=== PATIENT | female | born 1975 | race African-American/Black ===

== ENCOUNTER 2016-09-06 12:49 | Emergency (ER) | payer OTHER ==
[~2016-09-06] VITALS: Ht 167.6 cm; Wt 175.0 kg
[~2016-09-06 12:49] MED LIST: CEPH-460 PO; CIPR-9 PO; HYDR-3533 PO; HYDR12.57 PO; METF500T PO
[2016-09-06 12:52] VITALS: BP 219/114; PULSE 114; RESP 20; TEMP 97.8; O2SAT 98
--- NOTE | 2016-09-06 15:25 | PD ---
HPI Chief Complaint: Pain: Acute or Chronic Time Seen by Provider: 15:25 Travel History International Travel<30 days: No Contact w/Intl Traveler<30days: No Traveled to known affect area: No History of Present Illness HPI 41-year-old female with PMH of DM, HTN presents to the ED for evaluation of "months long" history of right sided foot pain. She states that she works on her feet all day at [employer], this worsens the pain on the inner aspect of her right foot. Pain occasionally shoots up the leg. She denies acute injury to the area. She does note that she has a large callus in the area. Denies fevers, chills, numbness, tingling, limitations to range of motion of the extremity. She states that her mom gave her a few doses of gabapentin and this did improve the pain. She states she is otherwise been feeling well. She endorses complaints with her daily medications. She has never had a diabetic foot check. PFSH Past Medical History Asthma: No Blood Disorders: No Anxiety: No Depression: No Heart Rhythm Problems: No Cancer: No Cardiac Catheterization: No Cardiovascular Problems: Yes High Cholesterol: No Chemotherapy: No Chest Pain: No Congestive Heart Failure: No COPD: No Diabetes: Yes Patient Takes Glucophage: Yes Diminished Hearing: No Endocrine: Yes Genitourinary: No Hypertension: Yes Implanted Vascular Access Dvce: No Musculoskeletal: No Neurologic: Yes (dizziness) Psychiatric: No Reproductive: No Respiratory: No Myocardial Infarction: No Radiation Therapy: No Sleep Apnea: No Thyroid Disease: No ?: Not LMP: AUG 2016 Menopausal: Yes : 1 Para: 1 Past Surgical History Coronary Artery Bypass Graft: No Social History Alcohol Use: No Tobacco Use: No Substance Use: No Allergies-Medications (Allergen,Severity, Reaction): Coded Allergies: No Known Allergies (Verified , 09/06/16) Reported Meds & Prescriptions Reported Meds & Active Scripts Active Gabapentin 300 Mg Cap 300 Mg PO BID Lortab (Hydrocodone-Acetaminophen) 5-325 Mg Tab 1 Tab PO Q4H PRN Keflex (Cephalexin) 500 Mg Cap 500 Mg PO Q6H Cipro (Ciprofloxacin HCl) 500 Mg Tab 500 Mg PO BID Reported Hydrochlorothiazide 12.5 Mg Cap 12.5 Mg PO BID Metformin (Metformin HCl) 500 Mg Tab 500 Mg PO BIDPC With meals Review of Systems Except as stated in HPI: all other systems reviewed are Neg Physical Exam Narrative GENERAL: Well-nourished, well-developed, obese black female in no acute distress. SKIN: Warm and dry. There is a 3 cm x 4 cm tender callus on the medial aspect of the right foot. No warmth, erythema, edema, lymphatic streaking. HEAD: Normocephalic. EYES: No scleral icterus. No injection or drainage. NECK: Supple, trachea midline. No JVD or lymphadenopathy. CARDIOVASCULAR: Regular rate and rhythm without murmurs, gallops, or rubs. RESPIRATORY: Breath sounds clear and equal bilaterally. No accessory muscle use. GASTROINTESTINAL: Abdomen soft, non-tender, nondistended. MUSCULOSKELETAL: No cyanosis, or edema. Focused right lower extremity exam: 2+ radial pulse. Patient is able to flex and extend the ankle and toes. Cap refill less than 2 seconds. Sensation intact to light touch distally. BACK: Nontender without obvious deformity. No CVA tenderness. Data Data Last Documented VS Vital Signs Date Time Temp Pulse Resp B/P Pulse Ox O2 Delivery O2 Flow Rate FiO2 09/06/16 12:52 97.8 114 20 219/114 98 Room Air MDM Medical Decision Making Medical Screen Exam Complete: Yes Emergency Medical Condition: Yes Differential Diagnosis Diabetic neuropathy versus callus versus diabetic foot wound versus other Narrative Course 41-year-old female with PMH of DM, HTN presents to the ED for evaluation of "months long" history of right sided foot pain. She states that she works on her feet all day at [employer], this worsens the pain on the inner aspect of her right foot. Pain occasionally shoots up the leg. She denies acute injury to the area. She does note that she has a large callus in the area. She states that her mom gave her a few doses of gabapentin and this did improve the pain. Vitals reviewed. Physical exam reveals a large, tender callus on the inner aspect of the right foot. No warmth, erythema, discharge, edema or lymphatic streaking. There is a 2+ DP pulse. Patient is able to flex and extend the ankle and toes. The patient asked me to remove the callus. I declined, explained the increased risk involved with diabetic foot care. Patient states that she has never had a diabetic foot check. I instructed her to follow up with the bead machine operator and her primary care provider for further evaluation of the pain. I cautioned her against treatment of the callus at home. Provided her a prescription for Neurontin, 300 mg twice a day. Again I stressed the importance of follow-up with the bead machine operator. The patient indicated understanding of instructions. She is amenable to plan of care. She is stable and discharged home. Diagnosis Primary Impression: Callus of foot Additional Impression: Diabetic neuropathy Qualified Code: E11.42 - Diabetic polyneuropathy associated with type 2 diabetes mellitus Referrals: [facility]ator Primary Care Physician Patient Instructions: Diabetes and Your Skin (ED), Diabetic Foot Ulcers (ED), General Instructions Additional Instructions: Rest, hydrate. Take gabapentin as prescribed. Follow-up the bead machine operator this week as discussed. Follow up with her primary care provider for diabetic foot check. Return to the ED for any urgent or emergent medical condition. Med/Other Pt SpecificInfo: Prescription(s) given Scripts Gabapentin 300 Mg [id number] Mg PO BID #60 CAP Ref 0 Prov:Ashley Beatty MD 09/06/16 Disposition: 01 DISCHARGE HOME Condition: Stable Mony King Sep 06, 2016 15:25
[2016-09-06] MEDS ORDERED: GABA300C5 PO (15:39)
== END 2016-09-06 16:08 | disposition home or self-care (01) ==
LOC: NETRI 12:49
DX: L84 Corns and callosities (principal); E11.42 Type 2 diabetes mellitus with diabetic polyneuropathy; I10 Essential (primary) hypertension; Z79.84 Long term (current) use of oral hypoglycemic drugs; Z86.79 Personal history of other diseases of the circulatory system; Z86.69 Personal history of other diseases of the nervous system and sense organs
CPT/HCPCS: 99283

== ENCOUNTER 2016-09-25 07:48 | Emergency (ER) | payer OTHER ==
[~2016-09-25] VITALS: Ht 167.6 cm; Wt 175.0 kg
[~2016-09-25 07:48] MED LIST changes: +GABA300C5 PO
[2016-09-25 07:50] VITALS: BP 210/116; PULSE 86; RESP 20; TEMP 98.1; O2SAT 98
--- NOTE | 2016-09-25 08:57 | PD ---
HPI Chief Complaint: Skin Problem Time Seen by Provider: 08:54 Travel History International Travel<30 days: No Contact w/Intl Traveler<30days: No Traveled to known affect area: No History of Present Illness HPI Patient is a 41-year-old female presenting to the emergency department for evaluation of a right upper thigh abscess. Patient states it started 2 days ago. She reports it spontaneously draining. Her pain is 8/10. She denies any fever, chills, nausea, vomiting. PFSH Past Medical History Asthma: No Blood Disorders: No Anxiety: No Depression: No Heart Rhythm Problems: No Cancer: No Cardiac Catheterization: No Cardiovascular Problems: Yes High Cholesterol: No Chemotherapy: No Chest Pain: No Congestive Heart Failure: No COPD: No Diabetes: Yes Diminished Hearing: No Endocrine: Yes Genitourinary: No Hypertension: Yes Implanted Vascular Access Dvce: No Musculoskeletal: No Neurologic: Yes (dizziness) Psychiatric: No Reproductive: No Respiratory: No Myocardial Infarction: No Radiation Therapy: No Sleep Apnea: No Thyroid Disease: No ?: Not LMP: 2 weeks ago Menopausal: Yes : 1 Para: 1 Past Surgical History Coronary Artery Bypass Graft: No Social History Alcohol Use: No Tobacco Use: No Substance Use: No Allergies-Medications (Allergen,Severity, Reaction): Coded Allergies: No Known Allergies (Verified , 09/25/16) Reported Meds & Prescriptions Reported Meds & Active Scripts Active Gabapentin 300 Mg Cap 300 Mg PO BID Lortab (Hydrocodone-Acetaminophen) 5-325 Mg Tab 1 Tab PO Q4H PRN Keflex (Cephalexin) 500 Mg Cap 500 Mg PO Q6H Cipro (Ciprofloxacin HCl) 500 Mg Tab 500 Mg PO BID Reported Hydrochlorothiazide 12.5 Mg Cap 12.5 Mg PO BID Metformin (Metformin HCl) 500 Mg Tab 500 Mg PO BIDPC With meals Review of Systems Except as stated in HPI: all other systems reviewed are Neg Musculoskeletal: Positive: Myalgias Skin: Positive Lesions Physical Exam Narrative GENERAL: Morbidly obese, well-developed patient. SKIN: Warm and dry. 2 inch area of swelling and fluctuance noted to the right upper thigh. Significant weight tender to palpation, clear drainage noted. HEAD: Normocephalic. EYES: No scleral icterus. No injection or drainage. NECK: Supple, trachea midline. No JVD or lymphadenopathy. CARDIOVASCULAR: Regular rate and rhythm without murmurs, gallops, or rubs. RESPIRATORY: Breath sounds equal bilaterally. No accessory muscle use. GASTROINTESTINAL: Abdomen soft, non-tender, nondistended. MUSCULOSKELETAL: No cyanosis, or edema. BACK: Nontender without obvious deformity. No CVA tenderness. Data Data Last Documented VS Vital Signs Date Time Temp Pulse Resp B/P Pulse Ox O2 Delivery O2 Flow Rate FiO2 09/25/16 09:35 82 16 169/85 99 Room Air 09/25/16 07:50 98.1 Orders Wound Culture And Gram Stain (09/25/16 08:51) Lidocai-Epi 1%-1:100,000 Inj (Xylocaine- (09/25/16 09:00) MDM Medical Decision Making Medical Screen Exam Complete: Yes Emergency Medical Condition: Yes Interpretation(s) Vital Signs Date Time Temp Pulse Resp B/P Pulse Ox O2 Delivery O2 Flow Rate FiO2 09/25/16 07:50 98.1 86 20 210/116 98 Room Air Differential Diagnosis Cellulitis versus abscess versus folliculitis versus sebaceous cyst versus other Narrative Course Patient is a 41-year-old female presenting to emergency evaluation of an abscess to her right upper thigh. It is fluctuant, significantly tender to palpation. I&D is indicated, please see procedure report. Patient tolerated procedure well. Patient's vital signs showed an markedly elevated blood pressure upon arrival, blood pressure was reassessed at 169/85. Patient stated that she has not taken her blood pressure medication this morning. Patient was advised to maintain adherence to medication schedule to avoid rebound hypertension. Patient was advised to come back to emergency department 48 hours to have packing removed. She was encouraged to return to the emergency department sooner for any new or worsening symptoms. Patient verbalized understanding of these instructions. Patient stable for discharge. Procedures Procedure Narrative After the risks and benefits were discussed the following procedure was performed: INCISION AND DRAINAGE OF ABSCESS: The area was prepped and was sterilely draped. A subcutaneous wheal of 1 % Xylocaine with a total number 2 mL was used to anesthetize the area. The area was properly anesthetized. A number 11 scalpel was used to make a 1 -cm incision across the area of the abscess. Cultures were obtained. The abscess was drained an irrigated with normal saline. Quarter inch iodoform packing was placed in the wound. Sterile dressing applied. Patient advised to have packing removed in two days. Diagnosis Primary Impression: Abscess Referrals: Primary Care Physician Patient Instructions: Abscess (GEN), Abscess Follow-up (ED), Abscess Incision and Drainage (ED), General Instructions Additional Instructions: Return to emergency department in 48 hours to have packing removed Return to the emergency department sooner for any new or worsening symptoms Leave packing in place, you may change bandage as needed for soiling Complete full course of antibiotics as prescribed Med/Other Pt SpecificInfo: Prescription(s) given Scripts Clindamycin 150 Mg [id number] Mg PO Q8HR 10 Days Ref 0 Prov:Dona Schwartz 09/25/16 Tramadol 50 Mg Tab50 Mg PO Q4H PRN (PAIN) #10 TAB Ref 0 Prov:Densy Bruner MD 09/25/16 Disposition: 01 DISCHARGE HOME Condition: Stable Dona Schwartz Sep 25, 2016 08:57
[2016-09-25] MEDS ORDERED: LIDOCAINE 1%/EPINEPHrine 1:100,000 SOLN 20 ML VIAL INFIL ONE (09:00)
[2016-09-25 09:35] VITALS: BP 169/85; PULSE 82; RESP 16; O2SAT 99
[2016-09-25] MEDS ORDERED: TRAM50TA PO (09:49)
[2016-09-25] MEDS ORDERED: CLIN1CAP5 PO (09:50)
== END 2016-09-25 10:05 | disposition home or self-care (01) ==
LOC: NEPB 07:48
DX: L02.415 Cutaneous abscess of right lower limb (principal); B96.89 Other specified bacterial agents as the cause of diseases classified elsewhere
CPT/HCPCS: 10061; 87070; 87185

== ENCOUNTER 2017-11-11 13:53 | Inpatient (IN) | payer OTHER ==
[~2017-11-11 13:53] MED LIST changes: -CEPH-460 PO; +CLIN150C14 PO; -HYDR-3533 PO; +TRAM50TA PO
[2017-11-11 14:08] VITALS: BP 227/111; PULSE 88; RESP 14; TEMP 98.5; O2SAT 99
[2017-11-11] MEDS ORDERED: SODIUM CHLORIDE 0.9% FLUSH 10 ML FLUSH IVF PRN (17:30)
--- NOTE | 2017-11-11 17:30 | PD ---
HPI Chief Complaint: Edema Time Seen by Provider: 17:20 Travel History International Travel<30 days: No Contact w/Intl Traveler<30days: No Traveled to known affect area: No History of Present Illness HPI 42-year-old female with history of hypertension, diabetes, has not been on her medications for years, has not seen her PCP in years, here for evaluation of bilateral lower extremity edema and a large callus on her right foot. Patient reports that she has had worsening edema over the last 2 days. She denies chest pain or dyspnea. No history of DVT or PE. PFSH Past Medical History Asthma: No Blood Disorders: No Anxiety: No Depression: No Heart Rhythm Problems: No Cancer: No Cardiac Catheterization: No Cardiovascular Problems: Yes High Cholesterol: No Chemotherapy: No Chest Pain: No Congestive Heart Failure: No COPD: No Diabetes: Yes Diminished Hearing: No Endocrine: Yes Genitourinary: No Hypertension: Yes Implanted Vascular Access Dvce: No Musculoskeletal: No Neurologic: Yes (dizziness) Psychiatric: No Reproductive: No Respiratory: No Myocardial Infarction: No Radiation Therapy: No Sleep Apnea: No Thyroid Disease: No Menopausal: Yes : 1 Para: 1 Past Surgical History Coronary Artery Bypass Graft: No Social History Alcohol Use: No Tobacco Use: No Substance Use: No Allergies-Medications (Allergen,Severity, Reaction): Coded Allergies: No Known Allergies (Verified , 09/30/16) Reported Meds & Prescriptions Reported Meds & Active Scripts Active Gabapentin 300 Mg Cap 300 Mg PO BID Hydrochlorothiazide 25 Mg Tab 25 Mg PO DAILY Metformin (Metformin HCl) 500 Mg Tab 500 Mg PO BIDPC Gabapentin 300 Mg Cap 300 Mg PO BID Reported Hydrochlorothiazide 12.5 Mg Cap 12.5 Mg PO BID Metformin (Metformin HCl) 500 Mg Tab 500 Mg PO BIDPC With meals Review of Systems Except as stated in HPI: all other systems reviewed are Neg Physical Exam Narrative GENERAL: Well-developed, well-nourished, overweight, comfortable, no apparent distress. SKIN: Focused skin assessment warm/dry. HEAD: Atraumatic. Normocephalic. EYES: Pupils equal and round. No scleral icterus. No injection or drainage. ENT: No nasal bleeding or discharge. Mucous membranes pink and moist. NECK: Trachea midline. No JVD. CARDIOVASCULAR: Regular rate and rhythm. No murmur appreciated. RESPIRATORY: No accessory muscle use. Clear to auscultation. Breath sounds equal bilaterally. GASTROINTESTINAL: Abdomen soft, non-tender, nondistended. MUSCULOSKELETAL: No obvious deformities. No clubbing. No cyanosis. Mild bilateral lower extremity edema. All compartments in bilateral lower extremity' s are supple. Large firm callus on the plantar aspect of the right foot as well as one on the left foot. NEUROLOGICAL: Awake and alert. No obvious cranial nerve deficits. Motor grossly within normal limits. Normal speech. PSYCHIATRIC: Appropriate mood and affect; insight and judgment normal. Data Data Last Documented VS Vital Signs Date Time Temp Pulse Resp B/P (MAP) Pulse Ox O2 Delivery O2 Flow Rate FiO2 11/11/17 20:57 265/128 (173) 11/11/17 20:04 80 16 100 Room Air 11/11/17 14:08 98.5 Orders Orders Complete Blood Count With Diff (11/11/17 17:23) Comprehensive Metabolic Panel (11/11/17 17:23) B-Type Natriuretic Peptide (11/11/17 17:23) Act Partial Throm Time (Ptt) (11/11/17:) Prothrombin Time / Inr (Pt) (11/11/17 17:23) Ckmb (Isoenzyme) Profile (11/11/17 17:23) Troponin I (11/11/17 17:23) Iv Access Insert/Monitor (11/11/17 17:) Electrocardiogram (11/11/17 17:23) Ecg Monitoring (11/11/17 17:23) Oximetry (11/11/17 17:23) Chest, Single Ap (11/11/17 17:23) Sodium Chloride 0.9% Flush (Ns Flush) (11/11/17 17:30) Us Leg Venous Doppler Bilat (11/11/17 ) Beta Hcg (Quant/Titer) (11/11/17 17:23) Hydralazine Inj (Apresoline Inj) (11/11/17 18:00) Hydralazine Inj (Apresoline Inj) (11/11/17 20:15) Clonidine (Catapres) (11/11/17 20:15) Nicardipine Inj (Cardene Inj) (11/11/17 21:15) Labs Laboratory Tests Test 11/11/17 18:33 White Blood Count 7.7 TH/MM3 Red Blood Count 4.39 MIL/MM3 Hemoglobin 11.7 GM/DL Hematocrit 36.2 % Mean Corpuscular Volume 82.5 FL Mean Corpuscular Hemoglobin 26.8 PG Mean Corpuscular Hemoglobin Concent 32.5 % Red Cell Distribution Width 15.3 % Platelet Count 342 TH/MM3 Mean Platelet Volume 9.1 FL Neutrophils (%) (Auto) 60.5 % Lymphocytes (%) (Auto) 31.6 % Monocytes (%) (Auto) 6.2 % Eosinophils (%) (Auto) 1.0 % Basophils (%) (Auto) 0.7 % Neutrophils # (Auto) 4.7 TH/MM3 Lymphocytes # (Auto) 2.4 TH/MM3 Monocytes # (Auto) 0.5 TH/MM3 Eosinophils # (Auto) 0.1 TH/MM3 Basophils # (Auto) 0.1 TH/MM3 CBC Comment DIFF FINAL Differential Comment Prothrombin Time 10.3 SEC Prothromb Time International Ratio 1.0 RATIO Activated Partial Thromboplast Time 23.7 SEC Blood Urea Nitrogen 5 MG/DL Creatinine 0.75 MG/DL Random Glucose 219 MG/DL Total Protein 7.9 GM/DL Albumin 3.1 GM/DL Calcium Level 8.7 MG/DL Alkaline Phosphatase 129 U/L Aspartate Amino Transf (AST/SGOT) 17 U/L Alanine Aminotransferase (ALT/SGPT) 20 U/L Total Bilirubin 0.8 MG/DL Sodium Level 138 MEQ/L Potassium Level 3.9 MEQ/L Chloride Level 104 MEQ/L Carbon Dioxide Level 30.3 MEQ/L Anion Gap 4 MEQ/L Estimat Glomerular Filtration Rate 104 ML/MIN Total Creatine Kinase 60 U/L Troponin I LESS THAN 0.02 NG/ML Human Chorionic Gonadotropin, Quant LESS THAN 1 MIU/ML MDM Medical Decision Making Medical Screen Exam Complete: Yes Emergency Medical Condition: Yes Medical Record Reviewed: Yes Interpretation(s) EKG: Sinus, rate 74, leftward axis, normal intervals, LVH, no acute ischemic abnormality. Differential Diagnosis Venous insufficiency, fluid overload, DVT, callus of the foot, medication noncompliance, hypertensive crisis Narrative Course Initial vital signs show heart rate 88, blood pressure 227/111, pulse ox 99% on room air, oral temperature 98.5F. CBC is unremarkable. CMP is remarkable for random glucose 219, otherwise unremarkable. Cardiac enzymes are negative. BNP Beta-hCG is negative. Chest x-ray: Cardiomegaly. Mild pulmonary vascular congestion. Bilateral lower extremity venous duplex: Negative exam with no evidence of DVT. Patient was initially given 10 mg of IV hydralazine and her blood pressure actually went up. She was then given a dose of 0.2 mg of clonidine as well as 20 mg of hydralazine and her blood pressure continued to rise. The repeat blood pressure is 265/128. Because of this uncontrolled blood pressure, the patient will be admitted for further treatment and evaluation. Case discussed with hospitalist Dr. Ndiaye who will admit the patient to her service. Patient will be started on a Cardene drip. Diagnosis Primary Impression: Poorly controlled blood pressure Additional Impressions: Callus of foot Bilateral lower extremity edema Elevated blood pressure reading Hyperglycemia Admitting Information Admitting Physician Requests: Admit Referrals: Ashley Banuelos DPM 3 days fountain helper [facility] 3 days Scripts Gabapentin (Gabapentin) 300 Mg Cap 300 MG PO BID, #60 CAP 0 Refills Prov: Adam Baum MD 11/11/17 Hydrochlorothiazide (Hydrochlorothiazide) 25 Mg Tab 25 MG PO DAILY, #30 TAB 0 Refills Prov: Adam Baum MD 11/11/17 Metformin (Metformin) 500 Mg Tab 500 MG PO BIDPC for Blood Sugar Management, #60 TAB 0 Refills Prov: Adam Baum MD 11/11/17 Disposition: 01 DISCHARGE HOME Condition: Stable Adam Baum MD Nov 11, 2017 17:30
[2017-11-11] MEDS ORDERED: hydrALAZINE HCL 20 MG/ML VIAL IV PUSH ONE ×2 (18:00→20:15)
--- NOTE | 2017-11-11 18:07 | RADRPT ---
EXAM DATE/TIME: 11/11/2017 17:31 [facility] COMPARISON: No previous studies available for comparison. INDICATIONS : Short of breath with feet swelling. MEDICAL HISTORY : None. SURGICAL HISTORY : None. ENCOUNTER: Initial ACUITY: 1 day PAIN SCORE: 0/10 LOCATION: Bilateral chest FINDINGS: The heart is enlarged. Mild pulmonary vascular congestion is noted bilaterally. No focal infiltrate i s noted. CONCLUSION: Cardiomegaly. Mild pulmonary vascular congestion. Eric Paniagua MD on November 11, 2017 at 18:03 Board Certified Radiologist. This report was verified electronically.
--- NOTE | 2017-11-11 18:26 | RADRPT ---
EXAM DATE/TIME: 11/11/2017 17:48 [facility] COMPARISON: No previous studies available for comparison. INDICATIONS : Bilateral leg swelling. MEDICAL HISTORY : Hypertension. Glasses. Dizziness. Diabetes. SURGICAL HISTORY : section. ENCOUNTER: Initial ACUITY: 3 days PAIN SCORE: 3/10 LOCATION: Bilateral legs. TECHNIQUE: Venous ultrasound of the left and right leg was performed from the inguinal ligament to the proximal calf. Real-time, color Doppler and spectral tracing, compression and augmentation techniques were us ed. FINDINGS: RIGHT LEG: There is normal compressibility of the deep venous system from the inguinal region to the proximal ca lf. No echogenic clot is seen in the lumen of the common femoral, femoral, popliteal, and posterior tibial veins. There is a normal response of the venous system to proximal and distal augmentation an d respiration. LEFT LEG: There is normal compressibility of the deep venous system from the inguinal region to the proximal ca lf. No echogenic clot is seen in the lumen of the common femoral, femoral, popliteal, and posterior tibial veins. There is a normal response of the venous system to proximal and distal augmentation an d respiration. CONCLUSION: Negative exam with no evidence of deep venous thrombosis. Tim Bueno MD on November 11, 2017 at 18:22 Board Certified Radiologist. This report was verified electronically.
[2017-11-11 18:43] LABS: AUTOMATED NEUTROPHIL # 4.7 TH/MM3 (1.8-7.7); BASOPHIL # 0.1 TH/MM3 (0-0.2); BASOPHIL % 0.7 % (0.0-2.0); EOSINOPHIL # 0.1 TH/MM3 (0-0.4); HEMATOCRIT 36.2 % (35.0-46.0); HEMOGLOBIN 11.7 GM/DL (11.6-15.3); LYMPH % 31.6 % (9.0-44.0); LYMPHOCYTE # 2.4 TH/MM3 (1.0-4.8); MEAN CELL VOLUME 82.5 FL (80.0-100.0); MEAN CORPUSCULAR HEMOGLOBIN 26.8 PG (27.0-34.0); MEAN CORPUSCULAR HGB CONC 32.5 % (32.0-36.0); MEAN PLATELET VOLUME 9.1 FL (7.0-11.0); MONO % 6.2 % (0.0-8.0); MONOCYTE # 0.5 TH/MM3 (0-0.9); NEUT % 60.5 % (16.0-70.0); PLATELET COUNT 342 TH/MM3 (150-450); RED BLOOD COUNT 4.39 MIL/MM3 (4.00-5.30); RED CELL DISTRIBUTION WIDTH 15.3 % (11.6-17.2); WHITE BLOOD COUNT 7.7 TH/MM3 (4.0-11.0)
[2017-11-11 18:55] LABS: PROTHROMBIN TIME - PATIENT 10.3 SEC (9.8-11.6)
[2017-11-11 19:01] LABS: ALBUMIN 3.1 GM/DL (3.4-5.0); AST (GOT) 17 U/L (15-37); BICARBONATE 30.3 MEQ/L (21.0-32.0); BLOOD UREA NITROGEN 5 MG/DL (7-18); CALCIUM 8.7 MG/DL (8.5-10.1); CREATININE 0.75 MG/DL (0.50-1.00); GLOMERULAR FILTRATION RATE 104 ML/MIN (>89); GLUCOSE,RANDOM 219 MG/DL (74-106)
[2017-11-11 19:03] LABS: ALT (GPT) 20 U/L (10-53)
[2017-11-11 19:37] LABS: ALKALINE PHOSPHATASE 129 U/L (45-117); CHLORIDE 104 MEQ/L (98-107); SODIUM (NA) 138 MEQ/L (136-145); TOTAL BILIRUBIN ADULT 0.8 MG/DL (0.2-1.0); TOTAL PROTEIN 7.9 GM/DL (6.4-8.2); TROPONIN I LESS THAN 0.02 NG/ML (0.02-0.05)
[2017-11-11 20:04] VITALS: BP 255/117; PULSE 80; RESP 16; O2SAT 100
[2017-11-11] MEDS ORDERED: HYDR25TA5 PO (20:06)
[2017-11-11] MEDS ORDERED: METF500T PO (20:06)
[2017-11-11] MEDS ORDERED: GABA300C5 PO (20:06)
[2017-11-11] MEDS ORDERED: cloNIDine HCL 0.2 MG TAB PO ONE (20:15)
[2017-11-11 20:57] VITALS: BP 265/128
[2017-11-11] MEDS ORDERED: BISACODYL 10 MG SUPP RECTAL PRN (21:30)
[2017-11-11] MEDS ORDERED: NALOXONE HCL 0.4 MG/ML AMP IV PUSH PRN (21:30)
[2017-11-11] MEDS ORDERED: LACTULOSE SYRUP 20 GM/30 ML CUP PO PRN (21:30)
[2017-11-11] MEDS ORDERED: ONDANSETRON HCL 4 MG/2 ML VIAL IVP PRN (21:30)
[2017-11-11] MEDS ORDERED: SENNOSIDES 8.6 MG TAB PO PRN (21:30)
[2017-11-11] MEDS ORDERED: MAGNESIUM HYDROXIDE SUSP 30 ML CUP PO PRN (21:30)
[2017-11-11] MEDS ORDERED: SODIUM CHLORIDE 0.9% FLUSH 10 ML FLUSH IV FLUSH PRN (21:30)
[2017-11-11] MEDS ORDERED: GLUCAGON 1 MG/ML VIAL OTHER PRN (21:45)
[2017-11-11] MEDS ORDERED: DEXTROSE 50% IN WATER 50 ML VIAL(D50) IV PUSH PRN (21:45)
[2017-11-11 23:00] VITALS: BP 182/86; PULSE 79; RESP 16
[2017-11-11] MEDS: niCARdipine INJ 25 MG in SODIUM CHLOR 0.9% 250 ML INJ 240 ML IV PRN (23:15)
[2017-11-11] MEDS: HEPARIN SODIUM - SQ 10,000 UNITS/ML VIAL SQ SCH (23:15)
[2017-11-11] MEDS: ACETAMINOPHEN 325 MG TAB PO PRN (23:16)
[2017-11-11 23:30] VITALS: BP 208/93; PULSE 72; RESP 16; O2SAT 98
--- NOTE | 2017-11-11 23:42 | HHI.HP ---
[facility] Unknown Admission Diagnosis Uncontrolled blood pressure, bilateral pedal edema, hyperglycemia Diagnoses: Travel History International Travel<30 Days: No Contact w/Intl Traveler <30 Da: No Traveled to Known Affected Are: No History of Present Illness 42-year-old female with a past medical history significant for hypertension and type 2 diabetes mellitus presents to the emergency department for evaluation of bilateral swollen feet and a callus on her right foot. The patient reports she has been noncompliant with her medication regimen for approximately the past 2 months. She reports she has medications however she is just not been taking them. She endorses a headache that began in the emergency department. She denies any fever/chills. No difficulty with ambulation. No weakness. Denies any chest pain or shortness of breath. No abdominal pain. No nausea/vomiting/ diarrhea. Review of Systems Except as stated in HPI: all other systems reviewed are Neg Past Family Social History Past Medical History Hypertension Type 2 diabetes mellitus Past Surgical History Reported Meds & Active Scripts Active Gabapentin 300 Mg Cap 300 Mg PO BID Hydrochlorothiazide 25 Mg Tab 25 Mg PO DAILY Metformin (Metformin HCl) 500 Mg Tab 500 Mg PO BIDPC Gabapentin 300 Mg Cap 300 Mg PO BID Reported Hydrochlorothiazide 12.5 Mg Cap 12.5 Mg PO BID Metformin (Metformin HCl) 500 Mg Tab 500 Mg PO BIDPC With meals Allergies: Coded Allergies: No Known Allergies (Verified Allergy, Unknown, 11/11/17) Family History Mother with diabetes mellitus Social History Negative for alcohol, tobacco and illicit drugs Physical Exam Vital Signs Vital Signs Date Time Temp Pulse Resp B/P (MAP) Pulse Ox O2 Delivery O2 Flow Rate FiO2 11/11/17 23:15 79 182/86 11/11/17 23:00 79 16 182/86 (118) 11/11/17 20:57 265/128 (173) 11/11/17 20:04 80 16 255/117 (163) 100 Room Air 11/11/17 14:08 98.5 88 14 227/111 (149) 99 Physical Exam GENERAL: female lying in bed SKIN: No rashes, ecchymoses or lesions. Cool and dry. One area of callus along the medial aspect of the right plantar surface. Dry skin along the plantar surface of the right foot. No signs of infection. No surrounding erythema or edema. HEAD: Atraumatic. Normocephalic. No temporal or scalp tenderness. EYES: Pupils equal round and reactive. Extraocular motions intact. No scleral icterus. No injection or drainage. ENT: Nose without bleeding, purulent drainage or septal hematoma. Throat without erythema, tonsillar hypertrophy or exudate. Uvula midline. Airway patent. NECK: Trachea midline. No JVD or lymphadenopathy. Supple, nontender, no meningeal signs. CARDIOVASCULAR: Regular rate and rhythm without murmurs, gallops, or rubs. RESPIRATORY: Clear to auscultation. Breath sounds equal bilaterally. No wheezes , rales, or rhonchi. GASTROINTESTINAL: Abdomen soft, non-tender, nondistended. No hepato-splenomegaly , or palpable masses. No guarding. MUSCULOSKELETAL: Extremities without clubbing, cyanosis, or edema. No joint tenderness, effusion, or edema noted. No calf tenderness. NEUROLOGICAL: Awake and alert. Cranial nerves II through XII intact. Motor and sensory grossly within normal limits. Normal speech. Laboratory Laboratory Tests Test 11/11/17 18:33 White Blood Count 7.7 Red Blood Count 4.39 Hemoglobin 11.7 Hematocrit 36.2 Mean Corpuscular Volume 82.5 Mean Corpuscular Hemoglobin 26.8 Mean Corpuscular Hemoglobin Concent 32.5 Red Cell Distribution Width 15.3 Platelet Count 342 Mean Platelet Volume 9.1 Neutrophils (%) (Auto) 60.5 Lymphocytes (%) (Auto) 31.6 Monocytes (%) (Auto) 6.2 Eosinophils (%) (Auto) 1.0 Basophils (%) (Auto) 0.7 Neutrophils # (Auto) 4.7 Lymphocytes # (Auto) 2.4 Monocytes # (Auto) 0.5 Eosinophils # (Auto) 0.1 Basophils # (Auto) 0.1 CBC Comment DIFF FINAL Differential Comment Prothrombin Time 10.3 Prothromb Time International Ratio 1.0 Activated Partial Thromboplast Time 23.7 Blood Urea Nitrogen 5 Creatinine 0.75 Random Glucose 219 Total Protein 7.9 Albumin 3.1 Calcium Level 8.7 Alkaline Phosphatase 129 Aspartate Amino Transf (AST/SGOT) 17 Alanine Aminotransferase (ALT/SGPT) 20 Total Bilirubin 0.8 Sodium Level 138 Potassium Level 3.9 Chloride Level 104 Carbon Dioxide Level 30.3 Anion Gap 4 Estimat Glomerular Filtration Rate 104 Total Creatine Kinase 60 Troponin I LESS THAN 0.02 B-Type Natriuretic Peptide 39 Human Chorionic Gonadotropin, Quant LESS THAN 1 Result Diagram: 11/11/17183211/11/171832 Robb VTE Risk Assessment Caprini VTE Risk Assessment: No/Low Risk (score <= 1) Caprini Risk Assessment Model Point Value = 1 Point Value = 2 Point Value = 3 Point Value = 5 Age 41-60 Minor surgery BMI > 25 kg/m2 Swollen legs Varicose veins or History of unexplained or recurrent spontaneous Oral contraceptives or hormone replacement Sepsis (< 1 month) Serious lung disease, including pneumonia (< 1 month) Abnormal pulmonary function Acute myocardial infarction Congestive heart failure (< 1 month) History of inflammatory bowel disease Medical patient at bed rest Age 61-74 Arthroscopic surgery Major open surgery (> 45 min) Laparoscopic surgery (> 45 min) Malignancy Confined to bed (> 72 hours) Immobilizing plaster cast Central venous access Age >= 75 History of VTE Family history of VTE Factor V Leiden Prothrombin [id number] Lupus anticoagulant Anticardiolipin antibodies Elevated serum homocysteine Heparin-induced thrombocytopenia Other congenital or acquired thrombophilia Stroke (< 1 month) Elective arthroplasty Hip, pelvis, or leg fracture Acute spinal cord injury (< 1 month) Prophylaxis Regimen Total Risk Factor Score Risk Level Prophylaxis Regimen 0-1 Low Early ambulation 2 Moderate Order ONE of the following: *Sequential Compression Device (SCD) *Heparin 5000 units SQ BID 3-4 Higher Order ONE of the following medications: *Heparin 5000 units SQ TID *Enoxaparin/Lovenox 40 mg SQ daily (WT < 150 kg, CrCl > 30 mL/min) *Enoxaparin/Lovenox 30 mg SQ daily (WT < 150 kg, CrCl > 10-29 mL/min) *Enoxaparin/Lovenox 30 mg SQ BID (WT < 150 kg, CrCl > 30 mL/min) AND/OR *Sequential Compression Device (SCD) 5 or more Highest Order ONE of the following medications: *Heparin 5000 units SQ TID (Preferred with Epidurals) *Enoxaparin/Lovenox 40 mg SQ daily (WT < 150 kg, CrCl > 30 mL/min) *Enoxaparin/Lovenox 30 mg SQ daily (WT < 150 kg, CrCl > 10-29 mL/min) *Enoxaparin/Lovenox 30 mg SQ BID (WT < 150 kg, CrCl > 30 mL/min) AND *Sequential Compression Device (SCD) Assessment and Plan Assessment and Plan Assessment/plan: 1. Hypertensive emergency Patient's blood pressure in the emergency department 265/128 Patient complains of headache, denies blurry vision Cardene drip Wean as tolerated Continue home medications once medication reconciliation completed 2. Diabetes mellitus Holding home metformin Sliding scale insulin Monitor blood glucose 3. Pedal edema Lower extremity ultrasound negative for DVT FEN Diabetic diet. Electrolytes: Monitor and replete prn Physician Certification 2 Midnight Certification Type: Admission for Inpatient Services Order for Inpatient Services The services are ordered in accordance with Medicare regulations or non- Medicare payer requirements, as applicable. In the case of services not specified as inpatient-only, they are appropriately provided as inpatient services in accordance with the 2-midnight benchmark. Estimated LOS (days): 2 2 days is the estimated time the patient will need to remain in the hospital, assuming treatment plan goals are met and no additional complications. Post-Hospital Plan: Not yet determined Sapna Ndiaye MD Nov 11, 2017 23:42
[2017-11-12] VITALS (21 sets, daily range): BP systolic 123–225; BP diastolic 65–116; PULSE 74–93; RESP 15–21; TEMP 98.6; O2SAT 97–99
[2017-11-12] MEDS: HEPARIN SODIUM - SQ 10,000 UNITS/ML VIAL SQ SCH ×3 (06:13→19:56)
[2017-11-12 07:23] LABS: AUTOMATED NEUTROPHIL # 5.8 TH/MM3 (1.8-7.7); BASOPHIL % 0.4 % (0.0-2.0); EOSINOPHIL # 0.1 TH/MM3 (0-0.4); EOSINOPHIL % 0.8 % (0.0-4.0); HEMATOCRIT 35.5 % (35.0-46.0); HEMOGLOBIN 11.6 GM/DL (11.6-15.3); LYMPHOCYTE # 1.9 TH/MM3 (1.0-4.8); MEAN CELL VOLUME 82.1 FL (80.0-100.0); MEAN CORPUSCULAR HEMOGLOBIN 26.8 PG (27.0-34.0); MEAN CORPUSCULAR HGB CONC 32.6 % (32.0-36.0); MONO % 7.3 % (0.0-8.0); MONOCYTE # 0.6 TH/MM3 (0-0.9); NEUT % 68.5 % (16.0-70.0); PLATELET COUNT 333 TH/MM3 (150-450); RED BLOOD COUNT 4.32 MIL/MM3 (4.00-5.30); RED CELL DISTRIBUTION WIDTH 14.9 % (11.6-17.2); WHITE BLOOD COUNT 8.4 TH/MM3 (4.0-11.0)
[2017-11-12 07:49] LABS: BICARBONATE 26.7 MEQ/L (21.0-32.0); BLOOD UREA NITROGEN 6 MG/DL (7-18); CALCIUM 8.8 MG/DL (8.5-10.1); CHLORIDE 106 MEQ/L (98-107); CREATININE 0.65 MG/DL (0.50-1.00); GLOMERULAR FILTRATION RATE 122 ML/MIN (>89); GLUCOSE,RANDOM 268 MG/DL (74-106); SODIUM (NA) 139 MEQ/L (136-145)
[2017-11-12] MEDS: ACETAMINOPHEN 325 MG TAB PO PRN ×4 (09:10→21:32)
[2017-11-12] MEDS: INSULIN ASPART SUPPLEMENTAL SCALE SQ SCH ×4 (09:52→20:01)
[2017-11-12] MEDS: SODIUM CHLORIDE 0.9% FLUSH 10 ML FLUSH IV FLUSH SCH ×2 (09:55→20:02)
[2017-11-12] MEDS: niCARdipine INJ 25 MG in SODIUM CHLOR 0.9% 250 ML INJ 240 ML IV PRN ×2 (13:56→21:33)
--- NOTE | 2017-11-12 17:00 | HHI.PR ---
Subjective Remarks Patient complaining of headache no blurred vision no nausea or vomiting she admitted not being compliant with her medication We advised her and counseled her about the importance of being compliant with her medication Objective Vitals Vital Signs Date Time Temp Pulse Resp B/P (MAP) Pulse Ox O2 Delivery O2 Flow Rate FiO2 11/12/17 14:50 82 139/74 11/12/17 14:30 82 139/74 (95) 11/12/17 14:00 83 15 138/78 (98) 98 11/12/17 13:56 80 149/85 11/12/17 13:30 89 169/98 (121) 98 Room Air 11/12/17 13:00 83 15 157/86 (109) 98 Room Air 11/12/17 13:00 157/86 11/12/17 12:00 79 175/88 11/12/17 11:03 169/94 (119) 11/12/17 10:30 82 16 182/81 (114) 98 Room Air 11/12/17 09:54 83 182/116 (138) 11/12/17 09:28 86 18 136/67 (90) 98 Room Air 11/12/17 08:30 87 16 150/80 (103) 97 Room Air 11/12/17 07:30 84 16 151/76 (101) 97 Room Air 11/12/17 06:20 84 16 139/76 (97) 11/12/17 06:18 84 139/76 11/12/17 06:02 16 11/12/17 05:00 82 16 173/82 (112) 11/12/17 04:00 85 16 225/95 (138) 99 11/12/17 03:00 93 16 210/94 (132) 99 11/12/17 02:00 85 16 195/84 (121) 98 11/12/17 00:00 90 211/95 (133) 11/11/17 23:30 72 16 208/93 (131) 98 11/11/17 23:15 79 182/86 11/11/17 23:00 79 16 182/86 (118) 11/11/17 20:57 265/128 (173) 11/11/17 20:04 80 16 255/117 (163) 100 Room Air Result Diagram: 11/12/17 0710 11/12/17 0710 Objective Remarks GENERAL: This is a well-nourished, well-developed patient, in no apparent distress. SKIN: No rashes, warm and dry HEAD: Atraumatic. Normocephalic. EYES: Pupils equal round and reactive. Extraocular motions intact. No scleral icterus. ENT: Nose without bleeding, or drainage, Airway patent. NECK: Trachea midline. Supple CARDIOVASCULAR: Regular rate and rhythm without murmurs, gallops, or rubs. RESPIRATORY: Fair air entry bilaterally. No wheezes, rales, or rhonchi. GASTROINTESTINAL: Abdomen soft, non-tender, nondistended. Positive bowel sounds MUSCULOSKELETAL: Extremities without clubbing, cyanosis, or edema. Pedal pulses appreciated NEUROLOGICAL: Awake and alert. Moves all extremity. Normal speech.no focal neurological deficit A/P Assessment and Plan 1. Hypertensive emergency Patient's blood pressure in the emergency department 265/128 Patient complains of headache, denies blurry vision Cardene drip, start hydrochlorothiazide and lisinopril and try to wean Cardene drip, consider adding calcium channel jose if not able to wean down Cardene drip Wean as tolerated Continue home medications once medication reconciliation completed 2. Diabetes mellitus Holding home metformin Sliding scale insulin Monitor blood glucose Hemoglobin A1c 12.2..>> Ox Levemir 5 units twice daily, consider preprandial 3. Pedal edema Lower extremity ultrasound negative for DVT 4. Peripheral neuropathy Start gabapentin resume from med rec FEN Diabetic diet. Electrolytes: Monitor and replete prJuancarlos Sapp MD Nov 12, 2017 17:00
[2017-11-12] MEDS: LISINOPRIL 20 MG TAB PO SCH ×2 (17:31→19:55)
[2017-11-12] MEDS: HYDROCHLOROTHIAZIDE 25 MG TAB PO SCH (17:33)
[2017-11-12 17:35] LABS: HEMOGLOBIN A1C 12.6 % (4.3-6.0)
[2017-11-12] MEDS ORDERED: LISINOPRIL 20 MG TAB PO SCH (21:00)
--- NOTE | 2017-11-12 21:30 | EKG ---
Date Performed: 11/11/2017 Time Performed: 17:48:50 PTAGE: 42 years EKG: Sinus rhythm MODERATE VOLTAGE CRITERIA FOR LVH, CONSIDER NORMAL VARIANT BORDERLINE ECG PREVIOUS TRACING : 12/31/2011 01.17 Since the previous tracing, no significant change noted DOCTOR: Otis Garcia Interpretating Date/Time 11/12/2017 21:29:43
[2017-11-12] MEDS: GABAPENTIN 300 MG CAP PO SCH (23:55)
[2017-11-12] MEDS: INSULIN DETEMIR 100 UNITS/ML VIAL SQ SCH (23:55)
[2017-11-13] VITALS (11 sets, daily range): BP systolic 123–162; BP diastolic 65–87; PULSE 68–95; RESP 15–22; TEMP 98.2–99; O2SAT 95–100
[2017-11-13] MEDS: niCARdipine INJ 25 MG in SODIUM CHLOR 0.9% 250 ML INJ 240 ML IV PRN ×2 (06:20→17:47)
[2017-11-13] MEDS: HEPARIN SODIUM - SQ 10,000 UNITS/ML VIAL SQ SCH ×3 (06:20→21:12)
[2017-11-13] MEDS: ACETAMINOPHEN 325 MG TAB PO PRN ×3 (06:20→21:11)
[2017-11-13] MEDS ORDERED: CHLORHEXIDINE GLUCONATE 2 % 1 PACK (2 CLOTHS)(extra cloths) TOPICAL PRN (07:00)
[2017-11-13] MEDS: INSULIN ASPART SUPPLEMENTAL SCALE SQ SCH ×4 (08:34→21:00)
[2017-11-13] MEDS: INSULIN DETEMIR 100 UNITS/ML VIAL SQ SCH ×2 (08:35→21:00)
[2017-11-13] MEDS: LISINOPRIL 20 MG TAB PO SCH ×2 (08:35→21:11)
[2017-11-13] MEDS: HYDROCHLOROTHIAZIDE 25 MG TAB PO SCH (08:35)
[2017-11-13] MEDS: SODIUM CHLORIDE 0.9% FLUSH 10 ML FLUSH IV FLUSH SCH ×2 (08:35→21:11)
[2017-11-13] MEDS: GABAPENTIN 300 MG CAP PO SCH ×2 (08:35→21:11)
[2017-11-13] MEDS ORDERED: HYDROCHLOROTHIAZIDE 25 MG TAB PO SCH (09:00)
--- NOTE | 2017-11-13 12:03 | HHI.PR ---
Subjective Remarks 42-year-old female with a past medical history significant for hypertension and type 2 diabetes mellitus presents to the emergency department for evaluation of bilateral swollen feet and a callus on her right foot. The patient reports she has been noncompliant with her medication regimen for approximately the past 2 months. She reports she has medications however she is just not been taking them. She endorses a headache that began in the emergency department. She denies any fever/chills. No difficulty with ambulation. No weakness. Denies any chest pain or shortness of breath. No abdominal pain. No nausea/vomiting/ diarrhea. 4-12 Patient complaining of headache no blurred vision no nausea or vomiting she admitted not being compliant with her medication We advised her and counseled her about the importance of being compliant with her medication 4-13 needs to take her medications WILL INCREASE MEDS START NORVASC START COREG As needed Catapres wean off Cardene Discussed with patient and RN Objective Vitals Vital Signs Date Time Temp Pulse Resp B/P (MAP) Pulse Ox O2 Delivery O2 Flow Rate FiO2 11/13/17 10:00 80 176/74 11/13/17 10:00 80 11/13/17 09:00 84 179/103 11/13/17 08:00 98.2 78 22 148/75 (99) 97 11/13/17 08:00 78 11/13/17 06:20 81 123/64 11/13/17 06:00 78 11/13/17 04:00 98.6 81 18 123/65 (84) 95 11/13/17 04:00 79 11/13/17 02:00 80 11/13/17 00:00 79 11/13/17 00:00 98.4 77 22 162/78 (106) 100 11/12/17 22:00 85 11/12/17 21:33 200/117 11/12/17 20:00 74 11/12/17 20:00 98.6 75 21 159/82 (107) 99 11/12/17 18:28 82 20 152/70 (97) 11/12/17 18:00 77 11/12/17 17:39 82 16 123/65 (84) 97 11/12/17 14:50 82 139/74 11/12/17 14:30 82 139/74 (95) 11/12/17 14:00 83 15 138/78 (98) 98 11/12/17 13:56 80 149/85 11/12/17 13:30 89 169/98 (121) 98 Room Air 11/12/17 13:00 83 15 157/86 (109) 98 Room Air 11/12/17 13:00 157/86 11/12/17 12:00 79 175/88 I/O 11/12/17 11/12/17 11/12/17 11/13/17 11/13/17 11/13/17 07:00 15:00 23:00 07:00 15:00 23:00 Intake Total 1000 ml Output Total 2100 ml Balance -1100 ml Intake Oral 1000 ml Output Urine Total 2100 ml # Bowel Movements 0 Result Diagram: 11/12/17 0710 11/12/17 0710 Other Results Laboratory Tests Test 11/11/17 18:33 11/12/17 07:10 11/13/17 06:40 White Blood Count 7.7 TH/MM3 8.4 TH/MM3 Red Blood Count 4.39 MIL/MM3 4.32 MIL/MM3 Hemoglobin 11.7 GM/DL 11.6 GM/DL Hematocrit 36.2 % 35.5 % Mean Corpuscular Volume 82.5 FL 82.1 FL Mean Corpuscular Hemoglobin 26.8 PG 26.8 PG Mean Corpuscular Hemoglobin Concent 32.5 % 32.6 % Red Cell Distribution Width 15.3 % 14.9 % Platelet Count 342 TH/MM3 333 TH/MM3 Mean Platelet Volume 9.1 FL 9.0 FL Neutrophils (%) (Auto) 60.5 % 68.5 % Lymphocytes (%) (Auto) 31.6 % 23.0 % Monocytes (%) (Auto) 6.2 % 7.3 % Eosinophils (%) (Auto) 1.0 % 0.8 % Basophils (%) (Auto) 0.7 % 0.4 % Neutrophils # (Auto) 4.7 TH/MM3 5.8 TH/MM3 Lymphocytes # (Auto) 2.4 TH/MM3 1.9 TH/MM3 Monocytes # (Auto) 0.5 TH/MM3 0.6 TH/MM3 Eosinophils # (Auto) 0.1 TH/MM3 0.1 TH/MM3 Basophils # (Auto) 0.1 TH/MM3 0.0 TH/MM3 CBC Comment DIFF FINAL DIFF FINAL Differential Comment Prothrombin Time 10.3 SEC Prothromb Time International Ratio 1.0 RATIO Activated Partial Thromboplast Time 23.7 SEC Blood Urea Nitrogen 5 MG/DL 6 MG/DL Creatinine 0.75 MG/DL 0.65 MG/DL Random Glucose 219 MG/DL 268 MG/DL Total Protein 7.9 GM/DL Albumin 3.1 GM/DL Calcium Level 8.7 MG/DL 8.8 MG/DL Alkaline Phosphatase 129 U/L Aspartate Amino Transf (AST/SGOT) 17 U/L Alanine Aminotransferase (ALT/SGPT) 20 U/L Total Bilirubin 0.8 MG/DL Sodium Level 138 MEQ/L 139 MEQ/L Potassium Level 3.9 MEQ/L 3.8 MEQ/L Chloride Level 104 MEQ/L 106 MEQ/L Carbon Dioxide Level 30.3 MEQ/L 26.7 MEQ/L Anion Gap 4 MEQ/L 6 MEQ/L Estimat Glomerular Filtration Rate 104 ML/MIN 122 ML/MIN Total Creatine Kinase 60 U/L Troponin I LESS THAN 0.02 NG/ML B-Type Natriuretic Peptide 39 PG/ML Human Chorionic Gonadotropin, Quant LESS THAN 1 MIU/ML Hemoglobin A1c 12.6 % Nasal Screen MRSA (PCR) MRSA DETECTED Imaging Last Impressions Chest X-Ray 11/11/17 1723 Signed Impressions: Service Date/Time: Saturday, November 11, 2017 17:31 - CONCLUSION: Cardiomegaly. Mild pulmonary vascular congestion. Eric Paniagua MD Lower Extremity Ultrasound 11/11/17 0000 Signed Impressions: Service Date/Time: Saturday, November 11, 2017 17:48 - CONCLUSION: Negative exam with no evidence of deep venous thrombosis. Tim Bueno MD Objective Remarks GENERAL: Awake alert oriented 3 talkative somewhat cooperative SKIN: Warm and dry. HEAD: Atraumatic. Normocephalic. EYES: Pupils equal and round. No scleral icterus. No injection or drainage. Extraocular muscles intact ENT: No nasal bleeding or discharge. Mucous membranes pink and moist. Tongue is midline tongue is midline supple NECK: Trachea midline. No JVD. Supple CARDIOVASCULAR: Regular rate and rhythm. S1-S2 no S3 or S4 no heave or thrill or rub or gallop RESPIRATORY: No accessory muscle use. Clear to auscultation. Breath sounds equal bilaterally. Decreased breath sounds bilaterally morbidly obese GASTROINTESTINAL: Abdomen soft, non-tender, nondistended. Hepatic and splenic margins not palpable. MUSCULOSKELETAL: Extremities without clubbing, cyanosis, or edema. No obvious deformities. NEUROLOGICAL: Awake and alert. No obvious cranial nerve deficits. Motor grossly within normal limits. Five out of 5 muscle strength in the arms and legs. Normal speech. PSYCHIATRIC: INAppropriate mood and affect; insight and judgment ABnormal. Medications and IVs Current Medications Sodium Chloride (NS Flush) 2 ml UNSCH PRN IVF FLUSH AFTER USING IV ACCESS; Start 11/11/17 at 17:30; Stop 11/11/17 at 21:42; Status DC Hydralazine HCl (Apresoline Inj) 10 mg ONCE ONCE IV PUSH Last administered on 11/11/17at 18:34; Start 11/11/17 at 18:00; Stop 11/11/17 at 18:01; Status DC Hydralazine HCl (Apresoline Inj) 20 mg ONCE ONCE IV PUSH Last administered on 11/11/17at 20:41; Start 11/11/17 at 20:15; Stop 11/11/17 at 20:16; Status DC Clonidine (Catapres) 0.2 mg ONCE ONCE PO Last administered on 11/11/17at 20:41 ; Start 11/11/17 at 20:15; Stop 11/11/17 at 20:16; Status DC Nicardipine HCl 25 mg/Sodium Chloride 250 ml @ 50 mls/hr TITRATE PRN IV Blood pressure management Last administered on 11/13/17at 06:20; Start 11/11/17 at 21: 15 Sodium Chloride (NS Flush) 2 ml UNSCH PRN IV FLUSH FLUSH AFTER USING IV ACCESS ; Start 11/11/17 at 21:30 Sodium Chloride (NS Flush) 2 ml BID IV FLUSH Last administered on 11/13/17at 08: 35; Start 11/12/17 at 09:00 Acetaminophen (Tylenol) 650 mg Q4H PRN PO TEMP > 100.4 Last administered on 07/21at 06:20; Start 11/11/17 at 21:30 Ondansetron HCl (Zofran Inj) 4 mg Q6H PRN IVP NAUSEA OR VOMITING; Start at 21:30 Heparin Sodium (Porcine) (Heparin Inj) 5,000 units Q8H SQ Last administered on 11/13/17at 06:20; Start 11/11/17 at 22:00 Naloxone HCl (Narcan Inj) 0.4 mg UNSCH PRN IV PUSH SEE LABEL COMMENTS; Start at 21:30 Magnesium Hydroxide (Milk Of Magnesia Liq) 30 ml Q12H PRN PO Mild constipation ; Start 11/11/17 at 21:30 Sennosides (Senokot) 17.2 mg Q12H PRN PO Moderate constipation; Start 11/11/17 at 21:30 Bisacodyl (Dulcolax Supp) 10 mg DAILY PRN RECTAL SEVERE CONSITIPATION; Start at 21:30 Lactulose (Lactulose Liq) 30 ml DAILY PRN PO SEVERE CONSITIPATION; Start at 21:30 Dextrose (D50w (Vial) Inj) 50 ml UNSCH PRN IV PUSH HYPOGLYCEMIA-SEE COMMENTS; Start 11/11/17 at 21:45 Glucagon (Glucagon Inj) 1 mg UNSCH PRN OTHER HYPOGLYCEMIA-SEE COMMENTS; Start 11/11/17 at 21:45 Insulin Aspart (NovoLOG SUPPLEMENTAL SCALE) 1 ACHS SLIDING SCALE SQ Last administered on 11/13/17at 08:34; Start 11/12/17 at 08:00 Lisinopril (Prinivil) 20 mg Q12HR PO ; Start 11/12/17 at 21:00; Stop 11/12/17 at 21:00; Status DC Hydrochlorothiazide (Hydrodiuril) 25 mg DAILY PO ; Start 11/13/17 at 09:00; Stop 11/13/17 at 09:00; Status DC Hydrochlorothiazide (Hydrodiuril) 25 mg DAILY PO Last administered on at 08:35; Start 11/12/17 at 17:00 Lisinopril (Prinivil) 20 mg Q12HR PO Last administered on 11/13/17at 08:35; Start 11/12/17 at 17:00 Insulin Detemir (Levemir Inj) 5 units BID SQ Last administered on 11/13/17at 08: 35; Start 11/12/17 at 22:45 Gabapentin (Neurontin) 300 mg BID PO Last administered on 11/13/17at 08:35; Start 11/12/17 at 22:45 Miscellaneous Information Patient in critical care unit? Ass... [id number] ; Start 11/13/17 at 07:00 Chlorhexidine Gluconate (Chlorhexidine 2% Cloth) 3 pack DAILY@04 TOPICAL ; Start 11/14/17 at 04:00; Stop 11/18/17 at 04:01 Chlorhexidine Gluconate (Chlorhexidine 2% Cloth) 3 pack UNSCH PRN TOPICAL HYGIENIC CARE; Start 11/13/17 at 07:00; Stop 11/18/17 at 06:54 A/P Problem List: (1) Diabetes ICD Code: E11.9 - Type 2 diabetes mellitus without complications Status: Acute (2) History of medication noncompliance ICD Code: Z91.14 - Patient's other noncompliance with medication regimen Status: Acute (3) Hypertension ICD Code: I10 - Essential (primary) hypertension Status: Acute (4) Uncontrolled diabetes mellitus ICD Code: E11.65 - Type 2 diabetes mellitus with hyperglycemia Status: Acute (5) Non-compliant behavior ICD Code: R46.89 - Other symptoms and signs involving appearance and behavior Status: Acute (6) Morbid obesity due to excess calories ICD Code: E66.01 - Morbid (severe) obesity due to excess calories Status: Acute (7) Hyperglycemia ICD Code: R73.9 - Hyperglycemia, unspecified Status: Acute (8) Poorly controlled blood pressure ICD Code: I99.8 - Other disorder of circulatory system Status: Acute Assessment and Plan 1. Hypertensive emergency Patient's blood pressure in the emergency department 265/128 Patient complains of headache, denies blurry vision Cardene drip Wean as tolerated Continue home medications once medication reconciliation completed Started on Norvasc 5 mg twice daily Started on Coreg 3.125 mg twice daily Try to wean off Cardene 2. Diabetes mellitus Holding home metformin Sliding scale insulin Monitor blood glucose Restart metformin thousand milligrams twice daily 3. Pedal edema Lower extremity ultrasound negative for DVT 4. Peripheral neuropathy due to uncontrolled diabetes recommend control of diabetes 5. Morbid obesity due to excess calorie intake recommend diet and decrease of calorie intake 6 family history heart disease father in his early 50s due to noncompliance 7 mother also has diabetes and heart disease therefore it runs in the family on both sides FEN Diabetic diet. Electrolytes: Monitor and replete prn Discharge Planning Needs to take her medications when she leaves the hospital Jarred Redman DO Nov 13, 2017 12:03
[2017-11-13] MEDS: CARVEDILOL 3.125 MG TAB PO SCH ×2 (12:28→21:11)
[2017-11-13] MEDS: amLODIPine BESYLATE 5 MG TAB PO SCH ×2 (12:28→21:11)
[2017-11-13] MEDS: metFORMIN HCL 500 MG TAB PO SCH ×2 (12:42→17:43)
[2017-11-13] MEDS: cloNIDine HCL 0.1 MG TAB PO PRN ×2 (15:09→21:11)
--- NOTE | 2017-11-13 17:28 | ECHRPT ---
Indication: Heart Failure CONCLUSIONS The left ventricular systolic function is low normal with an estimated ejection fraction in the rang e of 50- 55%. Moderate concentric left ventricular hypertrophy. Normal left ventricular size. The left atrial size is moderately dilated. Mild thickening of the mitral valve leaflets. [id number] mitral valve regurgitation. There is trace tricuspid valve regurgitation. The estimated pulmonary arterial pressure is 25 mmHg. BP: 123 / 65 HR: 78 Rhythm: Sinus MEASUREMENTS (Male / Female) Normal Values Technical Quality:Fair 2D ECHO LV Diastolic Diameter PLAX 4.8 cm 4.2 - 5.9 / 3.9 - 5.3 cm LV Systolic Diameter PLAX 3.7 cm IVS Diastolic Thickness 1.5 cm 0.6 - 1.0 / 0.6 - 0.9 cm LVPW Diastolic Thickness 1.5 cm 0.6 - 1.0 / 0.6 - 0.9 cm LV Relative Wall Thickness 0.6 RV Internal Dim ED PLAX 3.4 cm LVOT Diameter 2.2 cm LA Systolic Diameter LX 4.6 cm 3.0 - 4.0 / 2.7 - 3.8 cm M-MODE Aortic Root Diameter MM 2.9 cm LA Systolic Diameter MM 4.2 cm LA Ao Ratio MM 1.4 AV Cusp Separation MM 2.2 cm DOPPLER AV Peak Velocity 155.0 cm/s AV Peak Gradient 9.6 mmHg LVOT Peak Velocity 117.0 cm/s LVOT Peak Gradient 5.5 mmHg AV Area Cont Eq pk 2.9 cm MV Area PHT 2.9 cm Mitral E Point Velocity 66.1 cm/s Mitral A Point Velocity 68.1 cm/s Mitral E to A Ratio 1.0 LV E' Lateral Velocity 5.6 cm/s Mitral E to LV E' Lateral Ratio 11.9 LV E' Septal Velocity 5.3 cm/s Mitral E to LV E' Septal Ratio 12.6 TR Peak Velocity 195.0 cm/s TR Peak Gradient 15.2 mmHg Right Atrial Pressure 10.0 mmHg Pulmonary Artery Systolic Pressu 25.2 mmHg Right Ventricular Systolic Press 25.2 mmHg FINDINGS LEFT VENTRICLE The left ventricular systolic function is low normal with an estimated ejection fraction in the rang e of 50- 55%. Moderate concentric left ventricular hypertrophy. Normal left ventricular size. RIGHT VENTRICLE Normal right ventricular size and systolic function. LEFT ATRIUM The left atrial size is moderately dilated. RIGHT ATRIUM The right atrial size is normal. ATRIAL SEPTUM Normal atrial septal thickness without atrial level shunting by limited color doppler interrogation. AORTA The aortic root and proximal ascending aorta are normal in size on limited imaging. MITRAL VALVE Mild thickening of the mitral valve leaflets. [id number] mitral valve regurgitation. AORTIC VALVE Trileaflet aortic valve. No aortic valve stenosis or regurgitation. TRICUSPID VALVE Structurally normal tricuspid valve. There is trace tricuspid valve regurgitation. The estimated pulmonary arterial pressure is 25 mmHg. PULMONARY VALVE No pulmonary valve regurgitation or stenosis. VESSELS The inferior vena cava is normal in size. PERICARDIUM No pericardial effusion. Denys Henao MD, FACC (Electronically Signed) Final Date:13 November 2017 17:28
[2017-11-13 21:15] LABS: BILIRUBIN, URINE NEG (NEG); BLOOD, URINE MOD (NEG); GLUCOSE,URINE 1000 mg/dL (NEG); KETONE, URINE NEG (NEG); MUCUS URINE FEW /lpf (OCC); NITRITE,URINE NEG (NEG); SQUAMOUS EPITHELIAL CELL URINE 7 /hpf (0-5); URINE COLOR YELLOW (YELLW/STRAW); URINE LEUKOCYTE ESTERASE NEG (NEG)
[2017-11-14] VITALS (13 sets, daily range): BP systolic 95–140; BP diastolic 45–80; PULSE 68–84; RESP 14–20; TEMP 98–99; O2SAT 96–99
[2017-11-14] MEDS: CHLORHEXIDINE GLUCONATE 2 % 1 PACK (2 CLOTHS)(taper/protocol) TOPICAL SCH (02:40)
[2017-11-14] MEDS: HEPARIN SODIUM - SQ 10,000 UNITS/ML VIAL SQ SCH ×3 (05:37→20:54)
[2017-11-14 07:22] LABS: AUTOMATED NEUTROPHIL # 5.1 TH/MM3 (1.8-7.7); BASOPHIL % 0.1 % (0.0-2.0); EOSINOPHIL # 0.1 TH/MM3 (0-0.4); EOSINOPHIL % 1.5 % (0.0-4.0); HEMATOCRIT 36.5 % (35.0-46.0); HEMOGLOBIN 11.9 GM/DL (11.6-15.3); LYMPH % 34.5 % (9.0-44.0); LYMPHOCYTE # 3.1 TH/MM3 (1.0-4.8); MEAN CELL VOLUME 82.7 FL (80.0-100.0); MEAN CORPUSCULAR HGB CONC 32.7 % (32.0-36.0); MONO % 6.8 % (0.0-8.0); MONOCYTE # 0.6 TH/MM3 (0-0.9); NEUT % 57.1 % (16.0-70.0); PLATELET COUNT 375 TH/MM3 (150-450); RED BLOOD COUNT 4.41 MIL/MM3 (4.00-5.30); RED CELL DISTRIBUTION WIDTH 15.1 % (11.6-17.2)
[2017-11-14 07:35] LABS: ALBUMIN 2.8 GM/DL (3.4-5.0); AST (GOT) 8 U/L (15-37); BLOOD UREA NITROGEN 14 MG/DL (7-18); CALCIUM 9.2 MG/DL (8.5-10.1); CHLORIDE 101 MEQ/L (98-107); CREATININE 0.86 MG/DL (0.50-1.00); GLOMERULAR FILTRATION RATE 88 ML/MIN (>89); GLUCOSE,RANDOM 281 MG/DL (74-106); MAGNESIUM 1.6 MG/DL (1.5-2.5); SODIUM (NA) 136 MEQ/L (136-145)
[2017-11-14 07:46] LABS: ALKALINE PHOSPHATASE 112 U/L (45-117); ALT (GPT) 13 U/L (10-53); FREE T4 0.87 NG/DL (0.76-1.46); PHOSPHORUS 4.5 MG/DL (2.5-4.9); TOTAL BILIRUBIN ADULT 0.5 MG/DL (0.2-1.0); TOTAL PROTEIN 7.2 GM/DL (6.4-8.2)
[2017-11-14] MEDS: GABAPENTIN 300 MG CAP PO SCH ×2 (08:58→20:54)
[2017-11-14] MEDS: LISINOPRIL 20 MG TAB PO SCH ×2 (08:58→20:54)
[2017-11-14] MEDS: INSULIN ASPART SUPPLEMENTAL SCALE SQ SCH ×4 (08:58→20:56)
[2017-11-14] MEDS: CARVEDILOL 3.125 MG TAB PO SCH ×2 (08:59→20:54)
[2017-11-14] MEDS: metFORMIN HCL 500 MG TAB PO SCH ×2 (08:59→18:00)
[2017-11-14] MEDS: amLODIPine BESYLATE 5 MG TAB PO SCH ×2 (08:59→20:54)
[2017-11-14] MEDS: HYDROCHLOROTHIAZIDE 25 MG TAB PO SCH (08:59)
[2017-11-14] MEDS: INSULIN DETEMIR 100 UNITS/ML VIAL SQ SCH ×2 (09:00→20:56)
[2017-11-14] MEDS: SODIUM CHLORIDE 0.9% FLUSH 10 ML FLUSH IV FLUSH SCH ×2 (09:00→20:55)
--- NOTE | 2017-11-14 11:38 | HHI.PR ---
Subjective Remarks Pt has no complaints. Denies any CP/SOB/N/V Tolerated a diet. Discussed w RN, BP's better controlled and BS 285. Objective Vitals Vital Signs Date Time Temp Pulse Resp B/P (MAP) Pulse Ox O2 Delivery O2 Flow Rate FiO2 11/14/17 10:00 75 11/14/17 08:00 71 11/14/17 08:00 99.0 71 14 129/70 (89) 96 11/14/17 06:00 73 11/14/17 05:30 72 131/80 (97) 11/14/17 04:00 72 11/14/17 04:00 98.3 72 20 95/45 (62) 97 11/14/17 02:00 77 11/14/17 01:30 74 132/78 (96) 11/14/17 00:00 79 11/14/17 00:00 98.1 77 16 131/68 (89) 99 11/13/17 22:00 82 148/75 (99) 100 11/13/17 22:00 92 11/13/17 20:00 95 11/13/17 20:00 98.5 87 15 142/73 (96) 99 11/13/17 18:21 23 11/13/17 17:47 74 140/78 11/13/17 16:00 68 11/13/17 16:00 98.7 68 16 161/87 (111) 97 11/13/17 14:00 75 11/13/17 12:00 99.0 79 17 155/79 (104) 96 11/13/17 12:00 79 I/O 11/13/17 11/13/17 11/13/17 11/14/17 11/14/17 11/14/17 07:00 15:00 23:00 07:00 15:00 23:00 Intake Total 1000 ml 1100 ml 620 ml Output Total 2100 ml 2500 ml 1300 ml Balance -1100 ml -1400 ml -680 ml Intake Oral 1000 ml 850 ml 620 ml IV Total 250 ml Output Urine Total 2100 ml 2500 ml 1300 ml # Bowel Movements 0 3 Result Diagram: 11/14/17 0649 11/14/17 0649 Imaging Last Impressions Chest X-Ray 11/11/17 3459 Signed Impressions: Service Date/Time: Saturday, November 11, 2017 17:31 - CONCLUSION: Cardiomegaly. Mild pulmonary vascular congestion. Eric Paniagua MD Lower Extremity Ultrasound 11/11/17 0000 Signed Impressions: Service Date/Time: Saturday, November 11, 2017 17:48 - CONCLUSION: Negative exam with no evidence of deep venous thrombosis. Tim Bueno MD Objective Remarks GENERAL: Awake and alert. CARDIOVASCULAR: Regular rate and rhythm. RESPIRATORY: No accessory muscle use. Clear to auscultation. Breath sounds equal but somewhat decreased. Obese GASTROINTESTINAL: Abdomen soft, non-tender, nondistended. MUSCULOSKELETAL: Extremities without edema. No obvious deformities. NEUROLOGICAL: Awake and alert. Normal speech. A/P Problem List: (1) Diabetes ICD Code: E11.9 - Type 2 diabetes mellitus without complications Status: Acute (2) History of medication noncompliance ICD Code: Z91.14 - Patient's other noncompliance with medication regimen Status: Acute (3) Hypertension ICD Code: I10 - Essential (primary) hypertension Status: Acute (4) Uncontrolled diabetes mellitus ICD Code: E11.65 - Type 2 diabetes mellitus with hyperglycemia Status: Acute (5) Non-compliant behavior ICD Code: R46.89 - Other symptoms and signs involving appearance and behavior Status: Acute (6) Morbid obesity due to excess calories ICD Code: E66.01 - Morbid (severe) obesity due to excess calories Status: Acute (7) Hyperglycemia ICD Code: R73.9 - Hyperglycemia, unspecified Status: Acute (8) Poorly controlled blood pressure ICD Code: I99.8 - Other disorder of circulatory system Status: Acute Assessment and Plan 1. Hypertensive emergency Patient's blood pressure in the emergency department 265/128 and Patient presented w headache, denies blurry vision s/p Kp flores now off of it. currently on on Norvasc 5 mg twice daily, HCTZ 25mg po daily, on Coreg 3.125 mg twice daily and lisinopril. Pt used to see Dr. Wetzel but not sure if he now takes her current insurance. 2. Diabetes mellitus metformin has been resumed Sliding scale insulin on levemir 5units BID, I will increase to 8 units BID. I have consulted consumer educator. RD consult to assist pt w better BS control at home w diet and meds. HbA1C 12.6. Pt has never monitored her BS as she didn't have a glucometer. I have counseled her on the importance of monitoring her BS as she requires insulin. Also we have discussed the importance of f/u w PCP as both her BP and BS are not well controlled and needs close monitoring. 3. Pedal edema Lower extremity ultrasound negative for DVT 4. Peripheral neuropathy due to uncontrolled diabetes recommend control of diabetes: on gabapentin 5. Morbid obesity due to excess calorie intake recommend diet and decrease of calorie intake 6 family history heart disease father in his early 50s due to noncompliance 7 mother also has diabetes and heart disease therefore it runs in the family on both sides Diabetic diet. Electrolytes: Monitor and replete prn Discharge Planning Transfer to med/surg. RD and senior health educator consults in place Scripts for meds written and diabetic supplies. Anticipate d/c in AM Oxana Duncan MD Nov 14, 2017 11:38
[2017-11-14] MEDS ORDERED: AMLO5 PO (11:39)
[2017-11-14] MEDS ORDERED: METF500 PO (11:39)
[2017-11-14] MEDS ORDERED: LISI-515 PO (11:39)
[2017-11-14] MEDS ORDERED: CARV3.125 PO (11:39)
[2017-11-14] MEDS ORDERED: HYDR25TA5 PO (11:39)
[2017-11-14] MEDS ORDERED: GABA300C5 PO (11:39)
[2017-11-14] MEDS ORDERED: INSU1MIS15 (11:41)
[2017-11-14] MEDS ORDERED: GLUCTES12 (11:41)
[2017-11-14] MEDS ORDERED: GLUCKIT15 (11:41)
[2017-11-14] MEDS ORDERED: LANCETS1 MI1 (11:41)
[2017-11-15] VITALS: BP 150/97; PULSE 79; PULSE 83; RESP 18; TEMP 98.1; O2SAT 100
[2017-11-15 04:00] VITALS: BP 136/85; PULSE 78; PULSE 79; RESP 18; TEMP 98; O2SAT 98
[2017-11-15] MEDS: CHLORHEXIDINE GLUCONATE 2 % 1 PACK (2 CLOTHS)(taper/protocol) TOPICAL SCH (04:00)
[2017-11-15] MEDS: HEPARIN SODIUM - SQ 10,000 UNITS/ML VIAL SQ SCH ×2 (05:16→12:03)
[2017-11-15 06:54] LABS: BICARBONATE 26.6 MEQ/L (21.0-32.0); CALCIUM 9.1 MG/DL (8.5-10.1); CREATININE 0.72 MG/DL (0.50-1.00)
[2017-11-15 08:00] VITALS: PULSE 75
[2017-11-15] MEDS: GABAPENTIN 300 MG CAP PO SCH (09:08)
[2017-11-15] MEDS: metFORMIN HCL 500 MG TAB PO SCH (09:08)
[2017-11-15] MEDS: INSULIN DETEMIR 100 UNITS/ML VIAL SQ SCH (09:09)
[2017-11-15] MEDS: CARVEDILOL 3.125 MG TAB PO SCH (09:09)
[2017-11-15] MEDS: LISINOPRIL 20 MG TAB PO SCH (09:09)
[2017-11-15] MEDS: amLODIPine BESYLATE 5 MG TAB PO SCH (09:09)
[2017-11-15] MEDS: HYDROCHLOROTHIAZIDE 25 MG TAB PO SCH (09:09)
[2017-11-15] MEDS: INSULIN ASPART SUPPLEMENTAL SCALE SQ SCH ×2 (09:12→12:09)
[2017-11-15] MEDS: SODIUM CHLORIDE 0.9% FLUSH 10 ML FLUSH IV FLUSH SCH (09:13)
[2017-11-15] MEDS: ACETAMINOPHEN 325 MG TAB PO PRN (10:28)
[2017-11-15] MEDS ORDERED: LEVEMIR SQ (10:51)
--- NOTE | 2017-11-15 10:52 | HHI.DS ---
Discharge Summary Admission Date Nov 11, 2017 at 21:04 Discharge Date: Nov 15, 2017 Admitting Diagnosis Uncontrolled blood pressure, bilateral pedal edema, hyperglycemia (1) Diabetes ICD Code: E11.9 - Type 2 diabetes mellitus without complications Status: Acute (2) History of medication noncompliance ICD Code: Z91.14 - Patient's other noncompliance with medication regimen Status: Acute (3) Hypertension ICD Code: I10 - Essential (primary) hypertension Status: Acute (4) Uncontrolled diabetes mellitus ICD Code: E11.65 - Type 2 diabetes mellitus with hyperglycemia Status: Acute (5) Non-compliant behavior ICD Code: R46.89 - Other symptoms and signs involving appearance and behavior Status: Acute (6) Morbid obesity due to excess calories ICD Code: E66.01 - Morbid (severe) obesity due to excess calories Status: Acute (7) Hyperglycemia ICD Code: R73.9 - Hyperglycemia, unspecified Status: Acute (8) Poorly controlled blood pressure ICD Code: I99.8 - Other disorder of circulatory system Status: Acute Procedures None Brief History - From Admission HPI from the admitting physician 42-year-old female with a past medical history significant for hypertension and type 2 diabetes mellitus presents to the emergency department for evaluation of bilateral swollen feet and a callus on her right foot. The patient reports she has been noncompliant with her medication regimen for approximately the past 2 months. She reports she has medications however she is just not been taking them. She endorses a headache that began in the emergency department. She denies any fever/chills. No difficulty with ambulation. No weakness. Denies any chest pain or shortness of breath. No abdominal pain. No nausea/vomiting/ diarrhea. CBC/BMP: 11/14/17 0649 11/15/17 0510 Significant Findings Laboratory Tests Test 11/13/17 06:40 11/13/17 20:00 11/14/17 06:49 11/15/17 05:10 Urine Turbidity HAZY (CLEAR) Urine Glucose (UA) 1000 mg/dL (NEG) Urine Occult Blood MOD (NEG) Urine Mucus FEW /lpf (OCC) Random Glucose 281 MG/DL (74-106) 221 MG/DL (74-106) Albumin 2.8 GM/DL (3.4-5.0) Aspartate Amino Transf (AST/SGOT) 8 U/L (15-37) Estimat Glomerular Filtration Rate 88 ML/MIN (>89) Imaging Last Impressions Chest X-Ray 11/11/17 1723 Signed Impressions: Service Date/Time: Saturday, November 11, 2017 17:31 - CONCLUSION: Cardiomegaly. Mild pulmonary vascular congestion. Eric Paniagua MD Lower Extremity Ultrasound 11/11/17 0000 Signed Impressions: Service Date/Time: Saturday, November 11, 2017 17:48 - CONCLUSION: Negative exam with no evidence of deep venous thrombosis. Tim Bueno MD PE at Discharge GENERAL: Awake and alert. CARDIOVASCULAR: Regular rate and rhythm. RESPIRATORY: No accessory muscle use. Clear to auscultation. Breath sounds equal but somewhat decreased. Obese GASTROINTESTINAL: Abdomen soft, non-tender, nondistended. MUSCULOSKELETAL: Extremities without edema. No obvious deformities. NEUROLOGICAL: Awake and alert. Normal speech. Pt update on day of discharge Patient reports she is feeling better. No headache or dizziness. She understands the need to follow-up outpatient with PCP and to take her medications as prescribed. Hospital Course 42-year-old female admitted and treated for the following conditions: 1. Hypertensive emergency Patient's blood pressure in the emergency department 265/128 and Patient presented w headache, s/p Cardene drip n. Patient successfully transitioned to oral medications including Norvasc 5 mg twice daily, HCTZ 25mg po daily, on Coreg 3.125 mg twice daily and lisinopril. Pt blood pressure stabilized. She is discharged on antihypertensives per the med rec. She is advised to follow-up outpatient with her PCP. She was strongly counseled on the need to be compliant with medications. 2. Diabetes mellitus: Noncompliant, untreated. metformin has been resumed HbA1C 12.6. Pt has never monitored her BS as she didn't have a glucometer. She was counseled her on the importance of monitoring her BS as she requires insulin. She is discharged on Levemir 10 units twice daily. She is to check her blood glucose regularly and keep a log and follow-up with PCP. 3. Pedal edema Lower extremity ultrasound negative for DVT 4. Peripheral neuropathy due to uncontrolled diabetes recommend control of diabetes: on gabapentin 5. Morbid obesity due to excess calorie intake recommend diet and decrease of calorie intake Pt Condition on Discharge: Good Discharge Disposition: Discharge Home Discharge Time: > 30 minutes Discharge Instructions DIET: Follow Instructions for: Diabetic Diet Activities you can perform: Regular-No Restrictions Follow up Referrals: PCP Follow-up - 3-5 Days New Medications: Blood Glucose Monitoring W/Device (Glucocom Blood Glucose Mo W/Device) 1 Kit Kit KIT .XX DIRECTED for Blood Sugar Management, #1 Glucocom Test Strips (Glucocom Test Strips) 1 Thelma Thelma EA .XX DIRECTED for Blood Sugar Management, #1 Insulin Syringe/U-100/31G X 5/16" 1 ml (Insulin Syringe/U-100/31G X 5/16" 1 ml) 31 Gauge X 5/16" Mis EA .XX DIRECTED for Blood Sugar Management, #1 0 Refills Lancets (Lancets) 1 Mis Mis EA .XX DIRECTED for Blood Sugar Management, #1 0 Refills Amlodipine (Norvasc) 5 Mg Tab 5 MG PO BID, #60 TAB Carvedilol (Coreg) 3.125 Mg Tab 3.125 MG PO Q12HR, #60 TAB Hydrochlorothiazide (Hydrochlorothiazide) 25 Mg Tab 25 MG PO DAILY, #30 TAB Insulin Detemir Inj (Levemir Inj) 1,000 unit/ 10 ML Vial 10 UNITS SQ BID, #60 INJECTION Do not mix with any other Insulin. Lisinopril (Lisinopril) 20 Mg Tab 20 MG PO Q12HR, #60 TAB Metformin (Glucophage) 500 Mg Tab 1000 MG PO BIDPC, #120 TAB Continued Medications: Gabapentin (Gabapentin) 300 Mg Cap 300 MG PO BID for Pain, #60 CAP 0 Refills (This prescription has been renewed) Renae Mota MD Nov 15, 2017 10:52
--- NOTE | 2017-11-15 10:52 | HHI.DCPOC ---
Discharge Care Plan Diagnosis: (1) Poorly controlled blood pressure (2) Diabetes (3) Non-compliant behavior (4) Morbid obesity due to excess calories (5) History of medication noncompliance (6) Uncontrolled diabetes mellitus (7) Hypertension Goals to Promote Your Health * To prevent worsening of your condition and complications * To maintain your health at the optimal level Directions to Meet Your Goals Take your medications as prescribed Follow your dietary instruction Follow activity as directed Keep your appointments as scheduled Take your immunizations and boosters as scheduled If your symptoms worsen call your PCP, if no PCP go to Urgent Care Center or Emergency Room Smoking is Dangerous to Your Health. Avoid second hand smoke Call the 24-hour hour crisis hotline for domestic abuse at Renae Mota MD Nov 15, 2017 10:52
== END 2017-11-15 13:36 | disposition home or self-care (01) | DRG 638 ==
LOC: NEPD 13:53 → NEDA 21:04 → NEDH 11-12 01:13 → HIMN 11-12 18:10 → N04B 11-14 15:33
PROVIDERS: ADMIT Family Medicine; ATTEND Family Medicine
DX: E11.65 Type 2 diabetes mellitus with hyperglycemia (principal); I16.1 Hypertensive emergency; E11.42 Type 2 diabetes mellitus with diabetic polyneuropathy; I11.9 Hypertensive heart disease without heart failure; E66.01 Morbid (severe) obesity due to excess calories; Z91.14 Patient's other noncompliance with medication regimen; L84 Corns and callosities; R60.0 Localized edema; Z79.899 Other long term (current) drug therapy; Z79.84 Long term (current) use of oral hypoglycemic drugs
CPT/HCPCS: 71045; 80048; 80053; 81001; 82550; 82948; 83036; 83735; 83880; 84100; 84439; 84443; 84484; 84702; 85025; 85610; 85730; 87641; 93005; 93306; 93970; 96374; 96376; J0360; J1644; J1815; J7050

== ENCOUNTER 2017-12-15 11:21 | Observation (INO) | payer MEDICAID, OTHER ==
[2017-12-15] VITALS (9 sets, daily range): BP systolic 139–210; BP diastolic 82–121; PULSE 74–88; RESP 14–22; TEMP 97.9–98.4; O2SAT 95–100
[~2017-12-15] VITALS: Ht 162.6 cm; Wt 169.1 kg
[~2017-12-15 11:21] MED LIST changes: +AMLO5 PO; +CARV3.125 PO; -CIPR-9 PO; -CLIN150C14 PO; +GLUCKIT15; +GLUCTES12; +HYDR25TA5 PO; +INSU1MIS15; +LANCETS1 MI1; +LEVEMIR SQ; +LISI-515 PO; +METF500 PO; -TRAM50TA PO
--- NOTE | 2017-12-15 11:54 | PD ---
HPI Chief Complaint: Chest Pain Time Seen by Provider: 11:44 Travel History International Travel<30 days: No Contact w/Intl Traveler<30days: No Traveled to known affect area: No History of Present Illness HPI This is a 42-year-old female who presents to the emergency department with chest discomfort that started last night feeling like a tightness in the left side of her chest, nonradiating, intermittent, moderate severity associated with nausea and shortness of breath. She says she had pain like this years and years ago. She does not remember when her last stress test was. She does have a history of poorly controlled high blood pressure. She did not take her medications today because of the chest pain she came right to the hospital. She also is an insulin-dependent diabetic. She does not smoke, and has no known history of hyperlipidemia or family history of heart disease. She denies any recent long trips or travel. PFSH Past Medical History Arthritis: No Asthma: No Blood Disorders: No Anxiety: No Depression: No Heart Rhythm Problems: No Cancer: No Cardiac Catheterization: No Cardiovascular Problems: Yes High Cholesterol: No Chemotherapy: No Chest Pain: No Congestive Heart Failure: No COPD: No Cerebrovascular Accident: No Diabetes: Yes Patient Takes Glucophage: Yes Diminished Hearing: No Endocrine: Yes GERD: No Genitourinary: No Hiatal Hernia: No Heparin Induced Thrombocytopen: No Hypertension: Yes Implanted Vascular Access Dvce: No Kidney Stones: No Musculoskeletal: No Neurologic: No Psychiatric: No Reproductive: No Respiratory: No Migraines: No Myocardial Infarction: No Radiation Therapy: No Renal Failure: No Seizures: No Sleep Apnea: No Thyroid Disease: No Ulcer: No ?: Not Menopausal: Yes : 1 Para: 1 Past Surgical History Abdominal Surgery: No Cardiac Surgery: No Section: Yes Coronary Artery Bypass Graft: No Ear Surgery: No Endocrine Surgery: No Eye Surgery: No Genitourinary Surgery: No Gynecologic Surgery: Yes Oral Surgery: Yes Thoracic Surgery: No Other Surgery: Yes Social History Alcohol Use: No Tobacco Use: No Substance Use: No Allergies-Medications (Allergen,Severity, Reaction): Coded Allergies: No Known Allergies (Verified Allergy, Unknown, 12/15/17) Reported Meds & Prescriptions Reported Meds & Active Scripts Active Atorvastatin (Atorvastatin Calcium) 10 Mg Tab 10 Mg PO HS Levemir Inj (Insulin Detemir) 1,000 unit/ 10 ML Vial 10 Units SQ BID Do not mix with any other Insulin. Glucocom Test Strips (Blood Glucose Test Strips) 1 Thelma Thelma Ea .XX DIRECTED Lancets 1 Mis Mis Ea .XX DIRECTED Insulin Syringe/U-100/31G X 12/17" 1 ml 31 Gauge X 12/17" Mis Ea .XX DIRECTED Glucocom Blood Glucose Mo W/Device (Device) 1 Kit Kit Kit .XX DIRECTED Lisinopril 20 Mg Tab 20 Mg PO Q12HR Norvasc (Amlodipine Besylate) 5 Mg Tab 5 Mg PO BID Coreg (Carvedilol) 3.125 Mg Tab 3.125 Mg PO Q12HR Gabapentin 300 Mg Cap 300 Mg PO BID Reported Hydrochlorothiazide 12.5 Mg Cap 12.5 Mg PO BID Metformin (Metformin HCl) 500 Mg Tab 500 Mg PO BIDPC With meals Review of Systems Except as stated in HPI: all other systems reviewed are Neg Physical Exam Narrative GENERAL:Well appearing, no acute distress SKIN: Focused skin assessment warm and dry. HEAD: Atraumatic. Normocephalic. EYES: Pupils equal and round. No injection or drainage. ENT: Moist mucous membranes NECK: Trachea midline. CARDIOVASCULAR: Regular rate and rhythm. No murmur appreciated. RESPIRATORY: Clear to auscultation. Breath sounds equal bilaterally. GASTROINTESTINAL: Abdomen soft, non-tender, nondistended. MUSCULOSKELETAL: No obvious deformities. NEUROLOGICAL: Awake and alert. No obvious cranial nerve deficits. Moving all extremities. PSYCHIATRIC: Appropriate mood and affect; insight and judgment normal Data Data Last Documented VS Vital Signs Date Time Temp Pulse Resp B/P (MAP) Pulse Ox O2 Delivery O2 Flow Rate FiO2 12/15/17 12:16 88 14 148/90 (109) 98 12/15/17 12:15 Room Air 12/15/17 11:36 98.3 Orders Orders Electrocardiogram (12/15/17 11:49) Complete Blood Count With Diff (12/15/17 11:49) Comprehensive Metabolic Panel (12/15/17 11:49) Troponin I (12/15/17 11:49) Chest, Single Ap (12/15/17 11:49) Ecg Monitoring (12/15/17 11:49) Bilateral Bp Monitoring (12/15/17 11:49) Iv Access Insert/Monitor (12/15/17 11:49) Oximetry (12/15/17 11:49) Oxygen Administration (12/15/17 11:49) Aspirin Chew (Aspirin Chew) (12/15/17 12:00) Sodium Chloride 0.9% Flush (Ns Flush) (12/15/17 12:00) Nitroglycerin Sl (Nitrostat Sl) (12/15/17 12:00) Morphine Inj (Morphine Inj) (12/15/17 12:00) Carvedilol (Coreg) (12/15/17 12:15) Lisinopril (Prinivil) (12/15/17 12:15) Hydrochlorothiazide (Hydrodiuril) (12/15/17 12:15) Amlodipine (Norvasc) (12/15/17 12:15) Admit Order (Ed Use Only) (12/15/17 12:54) Labs Laboratory Tests Test 12/15/17 12:02 White Blood Count 7.8 TH/MM3 Red Blood Count 4.21 MIL/MM3 Hemoglobin 11.6 GM/DL Hematocrit 35.1 % Mean Corpuscular Volume 83.4 FL Mean Corpuscular Hemoglobin 27.5 PG Mean Corpuscular Hemoglobin Concent 32.9 % Red Cell Distribution Width 15.1 % Platelet Count 335 TH/MM3 Mean Platelet Volume 9.0 FL Neutrophils (%) (Auto) 63.1 % Lymphocytes (%) (Auto) 27.7 % Monocytes (%) (Auto) 7.0 % Eosinophils (%) (Auto) 1.8 % Basophils (%) (Auto) 0.4 % Neutrophils # (Auto) 4.9 TH/MM3 Lymphocytes # (Auto) 2.2 TH/MM3 Monocytes # (Auto) 0.5 TH/MM3 Eosinophils # (Auto) 0.1 TH/MM3 Basophils # (Auto) 0.0 TH/MM3 CBC Comment DIFF FINAL Differential Comment Blood Urea Nitrogen 8 MG/DL Creatinine 0.78 MG/DL Random Glucose 345 MG/DL Total Protein 7.2 GM/DL Albumin 2.6 GM/DL Calcium Level 8.4 MG/DL Alkaline Phosphatase 134 U/L Aspartate Amino Transf (AST/SGOT) 11 U/L Alanine Aminotransferase (ALT/SGPT) 14 U/L Total Bilirubin 0.7 MG/DL Sodium Level 135 MEQ/L Potassium Level 3.9 MEQ/L Chloride Level 101 MEQ/L Carbon Dioxide Level 25.7 MEQ/L Anion Gap 8 MEQ/L Estimat Glomerular Filtration Rate 99 ML/MIN Troponin I LESS THAN 0.02 NG/ML MDM Medical Decision Making Medical Screen Exam Complete: Yes Emergency Medical Condition: Yes Medical Record Reviewed: Yes (Patient has been admitted to [facility] in the past in the setting of hypertensive urgency) Interpretation(s) EKG: Normal sinus rhythm, no ST changes No leukocytosis Hyperglycemia Troponin is negative Differential Diagnosis Acute coronary syndrome, pulmonary embolism, pleural effusion, hypertensive urgency Narrative Course This is a 42-year-old female who presents to the emergency department with chest discomfort that has been going on since yesterday associated with some nausea. She is placed on a monitor and an IV was established. She was given her home blood pressure medication and her blood pressure improved significantly. Labs are reassuring with a normal troponin. Patient will be placed in the chest pain center for serial cardiac enzymes and observation to exclude acute coronary syndrome. I suspect her symptoms were in the setting of hypertensive urgency. Scripts Atorvastatin (Atorvastatin) 10 Mg Tab 10 MG PO HS for Cholesterol Management, #30 TAB 0 Refills Prov: Fiona Buitrago 12/15/17 Gavi Walker MD December 15, 2017 11:54
[2017-12-15] MEDS ORDERED: SODIUM CHLORIDE 0.9% FLUSH 10 ML FLUSH IVF PRN (12:00)
[2017-12-15] MEDS ORDERED: ASPIRIN 81 MG CHEW TAB PO ONE (12:00)
[2017-12-15] MEDS ORDERED: MORPHINE SULFATE 4 MG/ML INJ IV PUSH ONE (12:00)
[2017-12-15] MEDS: NITROGLYCERIN 0.4 MG SL 25 TABS/BTL SL SCH ×3 (12:02→12:12)
[2017-12-15 12:15] LABS: AUTOMATED NEUTROPHIL # 4.9 TH/MM3 (1.8-7.7); BASOPHIL % 0.4 % (0.0-2.0); EOSINOPHIL # 0.1 TH/MM3 (0-0.4); EOSINOPHIL % 1.8 % (0.0-4.0); HEMATOCRIT 35.1 % (35.0-46.0); HEMOGLOBIN 11.6 GM/DL (11.6-15.3); LYMPH % 27.7 % (9.0-44.0); LYMPHOCYTE # 2.2 TH/MM3 (1.0-4.8); MEAN CELL VOLUME 83.4 FL (80.0-100.0); MEAN CORPUSCULAR HEMOGLOBIN 27.5 PG (27.0-34.0); MEAN CORPUSCULAR HGB CONC 32.9 % (32.0-36.0); MONOCYTE # 0.5 TH/MM3 (0-0.9); NEUT % 63.1 % (16.0-70.0); PLATELET COUNT 335 TH/MM3 (150-450); RED BLOOD COUNT 4.21 MIL/MM3 (4.00-5.30); RED CELL DISTRIBUTION WIDTH 15.1 % (11.6-17.2); WHITE BLOOD COUNT 7.8 TH/MM3 (4.0-11.0)
[2017-12-15] MEDS ORDERED: CARVEDILOL 3.125 MG TAB PO ONE (12:15)
[2017-12-15] MEDS ORDERED: LISINOPRIL 20 MG TAB PO ONE (12:15)
[2017-12-15] MEDS ORDERED: HYDROCHLOROTHIAZIDE 25 MG TAB PO ONE (12:15)
[2017-12-15] MEDS ORDERED: amLODIPine BESYLATE 5 MG TAB PO ONE (12:15)
--- NOTE | 2017-12-15 12:26 | RADRPT ---
EXAM DATE/TIME: 12/15/2017 12:04 [facility] COMPARISON: CHEST SINGLE AP, November 11, 2017, 17:31. INDICATIONS : Patient states chest pains. MEDICAL HISTORY : Hypertension. Diabetes mellitus type II. SURGICAL HISTORY : None. ENCOUNTER: Initial ACUITY: 1 day PAIN SCORE: 8/10 LOCATION: Bilateral chest FINDINGS: A single view of the chest demonstrates the lungs to be symmetrically aerated without evidence of mas s, infiltrate or effusion. Heart size is borderline but well compensated.. Osseous structures are in tact with some degenerative spurring of the dorsal spine. CONCLUSION: 1. Heart size is borderline prominent but well compensated. 2. Lungs are clear. Bear Padilla MD on December 15, 2017 at 12:22 Board Certified Radiologist. This report was verified electronically.
[2017-12-15 12:39] LABS: ALBUMIN 2.6 GM/DL (3.4-5.0); ALT (GPT) 14 U/L (10-53); AST (GOT) 11 U/L (15-37); BICARBONATE 25.7 MEQ/L (21.0-32.0); BLOOD UREA NITROGEN 8 MG/DL (7-18); CALCIUM 8.4 MG/DL (8.5-10.1); CHLORIDE 101 MEQ/L (98-107); CREATININE 0.78 MG/DL (0.50-1.00); GLOMERULAR FILTRATION RATE 99 ML/MIN (>89); GLUCOSE,RANDOM 345 MG/DL (74-106); SODIUM (NA) 135 MEQ/L (136-145)
[2017-12-15 12:42] LABS: ALKALINE PHOSPHATASE 134 U/L (45-117); TOTAL BILIRUBIN ADULT 0.7 MG/DL (0.2-1.0); TOTAL PROTEIN 7.2 GM/DL (6.4-8.2); TROPONIN I LESS THAN 0.02 NG/ML (0.02-0.05)
[2017-12-15] MEDS ORDERED: ACETAMINOPHEN 500 MG CPLT PO PRN (13:30)
[2017-12-15] MEDS ORDERED: NITROGLYCERIN 0.4 MG SL 25 TABS/BTL SL PRN (13:30)
[2017-12-15] MEDS ORDERED: ONDANSETRON ODT 4 MG TAB PO PRN (13:30)
[2017-12-15] MEDS ORDERED: DEXTROSE 50% IN WATER 50 ML VIAL(D50) IV PUSH PRN (14:00)
[2017-12-15] MEDS ORDERED: GLUCAGON 1 MG/ML VIAL OTHER PRN (14:00)
--- NOTE | 2017-12-15 14:10 | HHI.HP ---
HPI Primary Care Physician Arthur Wetzel MD Chief Complaint Chest pain History of Present Illness 42-year-old female with history of hypertension and type 2 diabetes presents to emergency room for further evaluation of chest pain. Onset began suddenly last night becoming more intense this morning. Location substernal. Characterized as tightness with intermittent stabbing pain. Severity 7/10. No radiation pain. Duration constant. Associated symptoms include shortness of breath. No nausea, vomiting, or diaphoresis. Does not hurt to take a deep breath. No particular movement or position makes pain better or worse. No known precipitating or relieving factors. Endorses similar pain approximately 5 years ago at that time she completed a stress test reported to be normal. No recent injury or trauma. (Fiona Buitrago) Review of Systems General: No fatigue,weakness, fever, chills, or recent illness. He has been under general state of health. HEENT: No AMARO, no vision changes, no nasal congestion or drainage, no dysphasia CV: Continues to have chest pain as stated above. No palpitations, intermittent leg pain, or dizziness RESP: No SOB, cough, wheeze, or recent upper respiratory infection. GI: No nausea, vomiting, bowel changes, diarrhea, constipation, pain, distention , melena, or blood in the stool. : No dysuria, urgency, frequency, or history of kidney stones BUSINESS DIVISION CHAIR: Currently on menses EXT: No lower leg edema, no paraesthesias MS: No discomfort, injury, trauma, or change in ROM NEURO: No dizziness, difficulty with balance, LOC, motor/sensory deficits PSYCH: No anxiety or depression SKIN: No rashes, no concerning lesions (Fiona Buitrago) Past Family Social History Allergies: Coded Allergies: No Known Allergies (Verified Allergy, Unknown, 12/15/17) Past Medical History Hypertension, type 2 diabetes (dx age 26) Past Surgical History None Reported Medications Reported Meds & Active Scripts Active Levemir Inj (Insulin Detemir) 1,000 unit/ 10 ML Vial 10 Units SQ BID Do not mix with any other Insulin. Lisinopril 20 Mg Tab 20 Mg PO Q12HR Norvasc (Amlodipine Besylate) 5 Mg Tab 5 Mg PO BID Coreg (Carvedilol) 3.125 Mg Tab 3.125 Mg PO Q12HR Gabapentin 300 Mg Cap 300 Mg PO BID Hydrochlorothiazide 12.5 Mg Cap 25 Mg PO BID Metformin (Metformin HCl) 500 Mg Tab 1000 Mg PO BIDPC With meals Active Ordered Medications Current Medications Medications (Trade) Dose Ordered Sig/Kaylene Route Start Time Stop Time Status Last Admin (NS Flush) 2 ml UNSCH PRN IVF 12/15/17 12:00 12/15/17 12:02 (NS Flush) 2 ml BID IV FLUSH 12/15/17 21:00 (Tylenol) 500 mg Q4H PRN PO 12/15/17 13:30 (Zofran Inj) 4 mg Q6H PRN IV PUSH 12/15/17 13:30 UNV (Nitrostat Sl) 0.4 mg Q5M PRN SL 12/15/17 13:30 (Aspirin) 325 mg DAILY PO 12/16/17 09:00 UNV Family History Father myocardial infarction age 55. Social History Known hypertension and type 2 diabetes. No known hyperlipidemia, currently not on statin therapy. No known coronary artery disease. Lifelong non-smoker. Denies any alcohol or illegal drug use. Endorses sedentary lifestyle. 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 Past cardiac testing Remote cardiac stress test approximately 5 years ago reported to be normal. (Fiona Buitrago) Physical Exam Vital Signs Vital Signs Date Time Temp Pulse Resp B/P (MAP) Pulse Ox O2 Delivery O2 Flow Rate FiO2 12/15/17 13:36 95 21 12/15/17 12:16 88 14 148/90 (109) 98 12/15/17 12:15 88 18 144/85 (104) 98 Room Air 12/15/17 11:48 Room Air 12/15/17 11:48 82 14 210/121 (150) 99 Room Air 12/15/17 11:36 98.3 80 22 191/97 (128) 98 Physical Exam GENERAL: Alert WN, WD, NAD, pleasant, morbidly obese, -[place] female HEAD: NC, AT CV: RRR, without murmur, rub, gallop, no JVD, S1-S2 no S3-S4. Chest wall nontender with palpation. RESP: Clear lungs throughout bilateral, no crackles, wheeze, rhonchi, symmetrical chest rise, nonlabored, able to speak in full sentences ABD: Soft, NT, ND, no masses, positive bowel tones EXT: Pulses +2x4, trace bilateral pedal edema MS: Normal tone x4 extremities, no obvious deformities, full range of motion NEURO: CN II through CN XII grossly intact, motor strength 5/5 PSYCH: A+O x3, pleasant affect, appropriate speech, mood, insight and judgment SKIN: Normal turgor, normal texture, no lesions, no rashes Laboratory Laboratory Tests Test 12/15/17 12:02 White Blood Count 7.8 Red Blood Count 4.21 Hemoglobin 11.6 Hematocrit 35.1 Mean Corpuscular Volume 83.4 Mean Corpuscular Hemoglobin 27.5 Mean Corpuscular Hemoglobin Concent 32.9 Red Cell Distribution Width 15.1 Platelet Count 335 Mean Platelet Volume 9.0 Neutrophils (%) (Auto) 63.1 Lymphocytes (%) (Auto) 27.7 Monocytes (%) (Auto) 7.0 Eosinophils (%) (Auto) 1.8 Basophils (%) (Auto) 0.4 Neutrophils # (Auto) 4.9 Lymphocytes # (Auto) 2.2 Monocytes # (Auto) 0.5 Eosinophils # (Auto) 0.1 Basophils # (Auto) 0.0 CBC Comment DIFF FINAL Differential Comment Blood Urea Nitrogen 8 Creatinine 0.78 Random Glucose 345 Total Protein 7.2 Albumin 2.6 Calcium Level 8.4 Alkaline Phosphatase 134 Aspartate Amino Transf (AST/SGOT) 11 Alanine Aminotransferase (ALT/SGPT) 14 Total Bilirubin 0.7 Sodium Level 135 Potassium Level 3.9 Chloride Level 101 Carbon Dioxide Level 25.7 Anion Gap 8 Estimat Glomerular Filtration Rate 99 Troponin I LESS THAN 0.02 (Fiona Buitrago) Result Diagram: 12/15/17 1202 12/15/17 1202 Imaging Last 48 hours Impressions Chest X-Ray 12/15/17 1149 Signed Impressions: Service Date/Time: Friday, December 15, 2017 12:04 - CONCLUSION: 1. Heart size is borderline prominent but well compensated. 2. Lungs are clear. Bear Padilla MD Course EKG Normal sinus rhythm, no ST-T segment changes, criteria for LVH (Fiona Buitrago) Caprini VTE Risk Assessment Caprini VTE Risk Assessment: No/Low Risk (score <= 1) Caprini Risk Assessment Model Point Value = 1 Point Value = 2 Point Value = 3 Point Value = 5 Age 41-60 Minor surgery BMI > 25 kg/m2 Swollen legs Varicose veins or History of unexplained or recurrent spontaneous Oral contraceptives or hormone replacement Sepsis (< 1 month) Serious lung disease, including pneumonia (< 1 month) Abnormal pulmonary function Acute myocardial infarction Congestive heart failure (< 1 month) History of inflammatory bowel disease Medical patient at bed rest Age 61-74 Arthroscopic surgery Major open surgery (> 45 min) Laparoscopic surgery (> 45 min) Malignancy Confined to bed (> 72 hours) Immobilizing plaster cast Central venous access Age >= 75 History of VTE Family history of VTE Factor V Leiden Prothrombin [id number] Lupus anticoagulant Anticardiolipin antibodies Elevated serum homocysteine Heparin-induced thrombocytopenia Other congenital or acquired thrombophilia Stroke (< 1 month) Elective arthroplasty Hip, pelvis, or leg fracture Acute spinal cord injury (< 1 month) Prophylaxis Regimen Total Risk Factor Score Risk Level Prophylaxis Regimen 0-1 Low Early ambulation 2 Moderate Order ONE of the following: *Sequential Compression Device (SCD) *Heparin 5000 units SQ BID 3-4 Higher Order ONE of the following medications: *Heparin 5000 units SQ TID *Enoxaparin/Lovenox 40 mg SQ daily (WT < 150 kg, CrCl > 30 mL/min) *Enoxaparin/Lovenox 30 mg SQ daily (WT < 150 kg, CrCl > 10-29 mL/min) *Enoxaparin/Lovenox 30 mg SQ BID (WT < 150 kg, CrCl > 30 mL/min) AND/OR *Sequential Compression Device (SCD) 5 or more Highest Order ONE of the following medications: *Heparin 5000 units SQ TID (Preferred with Epidurals) *Enoxaparin/Lovenox 40 mg SQ daily (WT < 150 kg, CrCl > 30 mL/min) *Enoxaparin/Lovenox 30 mg SQ daily (WT < 150 kg, CrCl > 10-29 mL/min) *Enoxaparin/Lovenox 30 mg SQ BID (WT < 150 kg, CrCl > 30 mL/min) AND *Sequential Compression Device (SCD) (Fiona Buitrago) Assessment and Plan Assessment and Plan #1 Atypical chest pain-admitted to chest pain center. Begin ruling out ACS protocol including 3 sets of EKGs and cardiac enzymes. Continue to monitor on telemetry. Will be seen and evaluated by Dr. Loco Noriega. Further disposition to follow after evaluation by patron attendant. Reassurance provided chest discomfort unlikely to be related to cardiac however due to multiple risks factors discussed cardiac testing may be recommended. Verbalized understanding and agreeable to plan of care. #2 History of type 2 diabetes-hold metformin, begin SSI moderate dose coverage. #3 History of hypertension-continue amlodipine, hydrochlorothiazide, and amlodipine (Fiona Buitrago) Assessment and Plan Patient seen and examined. Atypical chest pain. Will plan Lexiscan. Start statin therapy (Loco Noriega MD) Fiona Buitrago December 15, 2017 14:10 Loco Noriega MD December 15, 2017 16:05
[2017-12-15 15:50] LABS: TROPONIN I LESS THAN 0.02 NG/ML (0.02-0.05)
[2017-12-15] MEDS ORDERED: ATOR10TA15 PO (17:13)
[2017-12-15] MEDS: INSULIN ASPART SUPPLEMENTAL SCALE SQ SCH ×2 (18:26→20:50)
[2017-12-15] MEDS: HYDROCHLOROTHIAZIDE 12.5 MG CAP PO SCH (20:49)
[2017-12-15] MEDS: amLODIPine BESYLATE 5 MG TAB PO SCH (20:49)
[2017-12-15] MEDS: GABAPENTIN 300 MG CAP PO SCH (20:49)
[2017-12-15] MEDS: CARVEDILOL 3.125 MG TAB PO SCH (20:49)
[2017-12-15] MEDS: LISINOPRIL 20 MG TAB PO SCH (20:50)
[2017-12-15] MEDS: SODIUM CHLORIDE 0.9% FLUSH 10 ML FLUSH IV FLUSH SCH (20:51)
[2017-12-16 00:53] VITALS: BP 141/80; PULSE 82; RESP 16; TEMP 98.1; O2SAT 95
[2017-12-16 04:41] VITALS: BP 140/67; PULSE 80; RESP 16; TEMP 98.2; O2SAT 97
[2017-12-16 07:27] VITALS: BP 145/77; PULSE 82; RESP 20; TEMP 98.1; O2SAT 98
[2017-12-16 07:53] VITALS: PULSE 82
[2017-12-16] MEDS: INSULIN ASPART SUPPLEMENTAL SCALE SQ SCH ×2 (08:00→12:18)
[2017-12-16] MEDS: HYDROCHLOROTHIAZIDE 12.5 MG CAP PO SCH (08:48)
[2017-12-16] MEDS: amLODIPine BESYLATE 5 MG TAB PO SCH (08:48)
[2017-12-16] MEDS: CARVEDILOL 3.125 MG TAB PO SCH (08:48)
--- NOTE | 2017-12-16 08:48 | EKG ---
Date Performed: 12/15/2017 Time Performed: 14:51:45 PTAGE: 42 years EKG: Sinus rhythm NONSPECIFIC ST ELEVATION BORDERLINE ECG Since PREVIOUS TRACING , no significant change noted DOCTOR: Mary Yi Interpretating Date/Time 12/16/2017 08:47:42
[2017-12-16] MEDS: LISINOPRIL 20 MG TAB PO SCH (08:49)
[2017-12-16] MEDS: SODIUM CHLORIDE 0.9% FLUSH 10 ML FLUSH IV FLUSH SCH (08:49)
[2017-12-16] MEDS: GABAPENTIN 300 MG CAP PO SCH (08:49)
--- NOTE | 2017-12-16 08:53 | EKG ---
Date Performed: 12/15/2017 Time Performed: 11:53:39 PTAGE: 42 years EKG: Sinus rhythm MINIMAL VOLTAGE CRITERIA FOR LVH, CONSIDER NORMAL VARIANT BORDERLINE ECG Since PREVIOUS TRACING , no significant change noted PREVIOUS TRACIN11/11/2017 17.48 DOCTOR: Mary Yi Interpretating Date/Time 12/16/2017 08:52:08
[2017-12-16] MEDS ORDERED: ASPIRIN 325 MG TAB PO SCH (09:00)
[2017-12-16] MEDS ORDERED: REGADENOSON INJ 0.4 MG/5 ML SYR ONE (09:04)
--- NOTE | 2017-12-16 10:35 | RADRPT ---
EXAM DATE/TIME: 12/15/2017 17:42 [facility] COMPARISON: No previous studies available for comparison. INDICATIONS : Substernal chest pain. Angina. DOSE: 30.2 mCi Tc99m Myoview at stress. 30.9 mCi Tc99m Myoview at rest. 0.4 mg Lexiscan STRESS SYMPTOMS: Heaviness feeling. EJECTION FRACTION: 43% MEDICAL HISTORY : Hypertension. Diabetes mellitus type 2. SURGICAL HISTORY : section. ENCOUNTER: Initial ACUITY: 1 day PAIN SCALE: 7/10 LOCATION: Substernal chest TECHNIQUE: The patient underwent pharmacologic stress with infusion of prescribed dose. Continuous ECG tracing was monitored during stress. Gated SPECT imaging was performed after stress and conventional SPECT i maging was performed at rest. The examination was performed on a SPECT/CT scanner, both attenuation and non-corrected datasets were reviewed. FINDINGS: DISTRIBUTION: The maximum perfused segment at stress is in the inferior and septal schmid. Image status were normali zed to the inferior wall wall. PERFUSION STUDY: The pattern of perfusion at stress is within normal limits. GATED STUDY: Mild hypokinesis most prominent in the septal wall. There is some paradoxical motion along the anteri or base. CONCLUSION: 1. No scintigraphic findings of ischemia. 2. However, there is some hypokinesis most prominent in the septal wall with mild paradoxical movemen t in the anterior base with a reduced ejection fraction of 43%. RISK CATEGORY: Intermediate (1-3% Annual Mortality Rate) Bear Padilla MD on December 16, 2017 at 10:27 Board Certified Radiologist. This report was verified electronically.
[2017-12-16 10:48] VITALS: BP 139/78; PULSE 78; RESP 20; TEMP 97.7; O2SAT 98
--- NOTE | 2017-12-16 11:36 | HHI.DCPOC ---
Discharge Care Plan Diagnosis: (1) Chest pain, atypical (2) Hypertension (3) Diabetes (4) Obesity Goals to Promote Your Health * To prevent worsening of your condition and complications * To maintain your health at the optimal level Directions to Meet Your Goals Take your medications as prescribed Follow your dietary instruction Follow activity as directed Keep your appointments as scheduled Take your immunizations and boosters as scheduled If your symptoms worsen call your PCP, if no PCP go to Urgent Care Center or Emergency Room Smoking is Dangerous to Your Health. Avoid second hand smoke Call the 24-hour hour crisis hotline for domestic abuse at Reginald Osborne December 16, 2017 11:36
[2017-12-16 11:40] VITALS: PULSE 78
--- NOTE | 2017-12-16 16:54 | TR ---
Date Performed: 12/16/2017 Time Performed: 08:59:29 DOCTOR: Mary Yi DRUG LIST: CLINICAL HISTORY: REASON FOR TEST: REASON FOR ENDING: OBSERVATION: CONCLUSION: Lexiscan stress test was performed under standard four minute protocol. Radionuclid e was injected one minute prior to ending the test. No electrocardiographic abormalities were present to suggest ischemia. Nuclear imaging and interpretation are pending. COMMENTS: No ischemia
== END 2017-12-16 15:27 | disposition home or self-care (01) ==
LOC: NEPC 11:21 → NEDA 12:56 → NEPHCDU 14:06
PROVIDERS: ADMIT Internal Medicine Cardiovascular Disease; ATTEND Internal Medicine Cardiovascular Disease
DX: R07.89 Other chest pain (principal); R06.02 Shortness of breath; R11.0 Nausea; I10 Essential (primary) hypertension; E11.9 Type 2 diabetes mellitus without complications; E66.01 Morbid (severe) obesity due to excess calories; Z79.899 Other long term (current) drug therapy; Z79.84 Long term (current) use of oral hypoglycemic drugs; Z82.49 Family history of ischemic heart disease and other diseases of the circulatory system
CPT/HCPCS: 71045; 78452; 80053; 82550; 82948; 84484; 85025; 93005; 93017; 96372; 96374; 99285; A9502; G0378; J1815; J2270; J2785